=== PATIENT | female | born 1980 | race Caucasian/White ===

== ENCOUNTER → 2020-01-14 15:50 | Outpatient (CLI) | payer OTHER, SELFPAY ==
--- NOTE | ~2020-01-14 | US_ITS ---
EXAMINATION: US transvaginal DATE: 01/14/2020 16:20 INDICATION: Abnormal uterine bleeding TECHNIQUE: Multiple endovaginal sonographic images of the pelvis were obtained. COMPARISON: None. FINDINGS: The uterus measures 9 x 5 x 5.3 cm. Nabothian cysts are noted in the cervix. The endometria l complex measures 10 mm. The right ovary measures 2.5 x 2.2 x 1.8 cm. The left ovary measures 3.1 x 2 x 2.1 cm. There is normal vascular flow in the ovaries. There is a small amount of free fluid in t he pelvis. IMPRESSION: 1. No sonographic correlate for the patient's symptoms. Reviewed, dictated and finalized at location A. PROCESS INSPECTOR
== END ==
PROVIDERS: Visit Provider Nurse Practitioner
DX: N93.9 Abnormal uterine and vaginal bleeding, unspecified (principal)
CPT/HCPCS: 76830

== ENCOUNTER → 2020-09-29 16:06 | Outpatient (CLI) | payer OTHER, SELFPAY ==
--- NOTE | ~2020-09-29 | MM_ITS ---
EXAMINATION: MM screening sandra BI w lisa HISTORY: Screening mammogram TECHNIQUE: Craniocaudal and mediolateral oblique 3-D tomosynthesis images were obtained and synthetic 2-D images were generated. CAD analysis was submitted and interpreted. COMPARISON: No prior mammogram is available for comparison at this institution. BREAST PARENCHYMAL COMPOSITION: The breasts are heterogeneously dense, which may obscure small masses . FINDINGS: RIGHT BREAST: There is no evidence of suspicious mass, calcification, or architectural distortion to suggest malignancy. LEFT BREAST: There are grouped indeterminate calcifications in the posterior third of the upper outer quadrant of the left breast. IMPRESSION: 1. Indeterminate left breast calcifications which may represent the patient's baseline however no com parison is currently available. 2. Comparison with prior mammograms is necessary. BI-RADS Category 0: Incomplete: Needs comparison with prior mammograms. Reviewed, dictated and finalized at location A. ER MAKER IMPRESSION: 1. Indeterminate left breast calcifications which may represent the patient's b aseline however no comparison is currently available. 2. Comparison with prior mammograms is necessary. BI-RADS Category 0: Incomplete: Needs comparison with prior mammograms.
== END ==
PROVIDERS: Visit Provider Nurse Practitioner
DX: Z12.31 Encounter for screening mammogram for malignant neoplasm of breast (principal); R91.8 Other nonspecific abnormal finding of lung field
CPT/HCPCS: 77063; 77067

== ENCOUNTER → 2020-10-31 08:43 | Outpatient (CLI) | payer OTHER, SELFPAY ==
--- NOTE | ~2020-10-31 | MM_ITS ---
EXAMINATION: MM diagnostic mammo unilat LT HISTORY: Indeterminate right breast calcifications on baseline screening mammogram TECHNIQUE: Additional images of the left breast were performed. CAD analysis was submitted and interp reted. COMPARISON: 09/29/2020 BREAST PARENCHYMAL COMPOSITION: The breasts are heterogeneously dense, which may obscure small masses . FINDINGS: There are grouped, punctate calcifications in the posterior third of the upper outer quadra nt of the breast which appear to be round in morphology. No associated mass is identified. IMPRESSION: 1. Probably benign left breast calcifications. 2. Recommend 6 month follow-up left diagnostic mammogram. BI-RADS category 3, probably benign findings. Reviewed, dictated and finalized at location A. ODONTAL ASSISTANT
== END ==
PROVIDERS: Visit Provider Obstetrics & Gynecology Gynecology
DX: R92.1 Mammographic calcification found on diagnostic imaging of breast (principal)
CPT/HCPCS: 77065

== ENCOUNTER → 2021-05-04 03:38 | Outpatient (CLI) | payer OTHER, SELFPAY ==
[2021-05-04 18:47] LABS: SARS-CoV-2 RNA PCR Negative
== END ==
PROVIDERS: PCP Family Medicine; Visit Provider Obstetrics & Gynecology Gynecology
DX: Z01.812 Encounter for preprocedural laboratory examination (principal); Z20.822 Contact with and (suspected) exposure to COVID-19
CPT/HCPCS: C9803; U0003; U0005

== ENCOUNTER 2021-05-04 08:18 | Outpatient (CLI) | payer OTHER, SELFPAY | END 2021-05-04 08:19 | disposition home or self-care (01) | LOC: ANHSURGERY 08:21 | PROVIDERS: PCP Family Medicine; Visit Provider Obstetrics & Gynecology Gynecology | DX: Z01.812 Encounter for preprocedural laboratory examination (principal); N92.0 Excessive and frequent menstruation with regular cycle | CPT/HCPCS: 36415; 86850; 86900; 86901 ==

== ENCOUNTER 2021-05-07 00:45 | Day surgery (SDC) | payer OTHER, SELFPAY ==
[2021-04-27 10:51] VITALS: BMI 35.6
--- NOTE | 2021-05-04 16:03 | P.PNAN_ITS ---
Anes - Initial Pre Proc Eval Procedure: Operation Date: 05/07/21 07:30 Proposed Procedures p Laparoscopic Assisted Vaginal Hysterectomy - Laura Solis MD Date/Time: 05/04/21 16:03 Surgeon: Laura Solis MD Pre Op Diagnosis: menorrhaghia Patient Data Age: 40 Gender: F Height: 1.57 m Weight: 88.45 kg Allergies Allergy/AdvReac Type Severity Reaction Status Date / Time cefaclor Allergy Severe Hives Verified 05/07/21 06:44 Home Medications Medication Instructions Recorded Confirmed Type buspirone 7.5 mg PO HS PRN 04/27/21 04/27/21 History sertraline 50 mg PO HS 04/27/21 04/27/21 History Patient hx anesthesia problems: none Family hx anesthesia problems: none [facility] Past Medical History Medical History (Updated 05/04/21 @ 16:04 by Corey Lopez MD) Anxiety Obesity Social History Social History Smoking status: Never smoker Alcohol intake: current Alcohol use details: 1/MONTH Substance use: never Substance use type: does not use Living arrangements: with family Spiritual care concerns: No Anes - Eval Final PreProcedure Day of Procedure 05/04/21 16:03 Patient weight: overweight Heart: regular rate and rhythm Lungs: clear to auscultation and normal air movement Airway: Mallampati scale class II Neurological: alert and oriented Last oral intake: >/= 8 hours ASA classification: II Emergent: no Anesthetic plan: proceed Anesthesia type and monitoring: general ETT Informed Consent: The patient's anesthetic plan and its attendant risks and benefits were discussed with the patient/family/POA. Questions were solicited and answers provided to the satisfaction of the patient/family/POA.
[2021-05-07] VITALS (9 sets, daily range): BP systolic 105–142; BP diastolic 49–89; PULSE 82–120; RESP 12–20; TEMP 36.1–36.9; O2SAT 92–100; BMI 35.8
--- NOTE | 2021-05-07 06:55 | WPDHPUPDATE1 ---
History and Physical Update Update Date/Time: 05/07/21 06:55 History and Physical has been reviewed, including an updated exam of the patient. There are NO changes in the patient's condition. Risks, benefits, and alternatives have been discussed and questions answered. Patient agrees to proceed with procedure.
--- NOTE | 2021-05-07 06:55 | PM.HPGS ---
History of Present Illness History of Present Illness Consent: Risks, benefits, and alternatives have been discussed and questions answered. Patient agrees to proceed with procedure. Chief complaint: menorrhaghia Narrative: Albina Cheek is a 40 year old female 3 para 3 status post ablation in 2013 with recurrent menorrhagia. The patient has been changing pads every 2 hours and bleeding through her clothes. She passes clots ranging from half-dollar to tennis ball size. Medical options were reviewed for treatment. She has elected to proceed with definitive therapy with hysterectomy. Plan is to proceed with laparoscopy to evaluate scar tissue from prior followed by a total vaginal hysterectomy possible bilateral salpingectomy. Risks of infection, bleeding, injury to internal organs (bowel, bladder, ovaries, ureters, etc.), deep vein thrombosis, and general anesthesia were reviewed. Possible need for open hysterectomy was also discussed. Patient voices understanding and agrees to proceed. Review of Systems Review of Systems: Narrative: not repeated day of surgery; patient states no changes in status PMFSH Past Medical History Medical History (Updated 05/07/21 @ 07:00 by Laura Solis MD) Anxiety (normal spontaneous vaginal delivery) x2 Obesity Surgical History Surgical History (Updated 05/07/21 @ 07:00 by Laura Solis MD) History of x1 S/P endometrial ablation Social History Social History Smoking status: Never smoker Alcohol intake: current Alcohol use details: 1/MONTH Substance use: never Substance use type: does not use Living arrangements: with family Spiritual care concerns: No Meds Home Medications and Allergies Home Medications Medication Instructions Recorded Confirmed Type buspirone 7.5 mg PO HS PRN 04/27/21 05/07/21 History sertraline 50 mg PO HS 04/27/21 05/07/21 History Allergies Allergy/AdvReac Type Severity Reaction Status Date / Time cefaclor Allergy Severe Hives Verified 05/07/21 06:44 Exam Const: General: healthy appearing and alert Orientation/consciousness: patient oriented x3 Resp: Effort & Inspection: normal respiratory effort Auscultation: clear to auscultation bilaterally Cardio: Rate: regular rate Rhythm: regular rhythm GI: GI Palp: Yes Soft to palpation, No Tenderness to palpation present (GI) and No Palpable mass present : External Female Exam: normal external appearance Speculum Exam - Vagina: normal appearance of the vagina and normal vaginal discharge Speculum Exam - Cervix: normal appearance of the cervix Bimanual exam- vagina & uterus: uterine size normal and consistency normal Bimanual Exam- Adnexa, other: normal adnexae and No adnexal tenderness Neuro: General: patient oriented x3 Assessment and Plan Assessment and plan (1) Menorrhagia: Code(s): N92.0 - Excessive and frequent menstruation with regular cycle Status: Acute Assessment and Plan: Plan is to proceed with laparoscopy, total vaginal hysterectomy and possible bilateral salpingectomy.
[2021-05-07] MEDS: KETOROLAC 15 MG/ML VIAL (*BKC) IV PUSH (07:30)
[2021-05-07] MEDS: ACETAMINOPHEN 500 MG TABLET 1000 MG PO (07:30)
[2021-05-07] MEDS: LACTATED RINGERS 1,000 ML 30 ML IV CONT ×2 (07:30→09:42)
[2021-05-07] MEDS: CLINDAMYCIN 900 MG/D5W 50 ML 900 MG/50 ML PIGGYBACK 50 MG IVPB (07:43)
[2021-05-07] MEDS: GENTAMICIN SULFATE INJ 325 MG in DEXTROSE 5% 100 ML 100 MG IVPB (07:43)
[2021-05-07] MEDS: LIDO 1%/EPINEPHRINE 1:100,000 50 ML VIAL INFILTRATE (08:59)
--- NOTE | 2021-05-07 09:09 | W.PM.PROC2 ---
Procedure Note - Detailed Date of Procedure 05/07/21 Pre-op Diagnosis menorrhaghia Post-op Diagnosis same Procedure Performed Laparoscopic adhesiolysis; total vaginal hysterectomy with bilateral salpingectomy Surgeon Laura Solis MD Anesthesia general Findings There is omentum adherent to the entire posterior fundus. Tubes and ovaries appear grossly normal and uterus appears grossly normal. Description of Procedure The patient was taken to the operating room and placed under anesthesia in the dorsal lithotomy position. She was prepped and draped in the usual sterile fashion. [place] speculum was placed in the vagina and the cervix was grasped on the anterior lip with a tenaculum. The acorn manipulator was placed. The attention is then turned to the abdomen where a vertical skin incision was made in the base of the umbilicus. The abdomen is tented and the Veress needle placed opening patient pressure was 5mmHg. Pneumoperitoneum was obtained to a patient pressure of 15mmHg. The Veress needle was removed and the 5mm Optiview to trocar was placed while tenting the abdomen. Intra-abdominal placement was confirmed with the laparoscope. The patient is placed in Trendelenburg a 5mm skin incision was made 2cm above the symphysis pubis in the midline and the trocars placed under direct visualization. Using a blunt probe the pelvis is explored with the stated findings. The 3rd 5mm trocars placed in the left lower quadrant under direct visualization. The omentum is grasped with an atraumatic grasper and the [place] scissors are used to cauterize and cut the scar tissue until the omentum was fully released. Attention is then returned to the pelvis the acorn manipulator is removed. The short weighted speculum was placed posteriorly and the Norman retractor placed anteriorly the cervix is injected in a circumferential manner with 1% lidocaine with epinephrine. A scalpel was used to circumferentially incise the cervix around the os. The vaginal mucosa is dissected off anteriorly using sharp and blunt dissection. The peritoneum was entered and the Norman retractor was placed intraperitoneally. the posterior vaginal mucosa is dissected off using sharp and blunt dissection and the peritoneum was entered using sharp Borja scissors. The long curved weighted speculum was placed through the peritoneal incision posteriorly. The minimally curved Z clamps are used to clamp the uterosacral ligaments which were then transected and suture-ligated with 0 Vicryl and tagged for future use. The cardinal ligaments were serially clamped transected and suture ligated with 0 Vicryl. The the uterine vessels are clamped transected and suture ligated with 0 Vicryl. The posterior fundus is grasped with piercing towel clamps and specimen delivered through the cul-de-sac. The specimen is very wide at the fundus and therefore the fundus is transected to allow for manipulation to reach the last pedicle. The utero-ovarian ligament is clamped transected and suture ligated with 0 Vicryl the tube is included on the pedicle of the right. The left previously tagged utero-ovarian ligament is grasped and the left tube identified grasped with a [place] and crossclamped with a the clamp. The tube was excised and the pedicle tied off using 0 Vicryl. All pedicles are inspected and noted to be hemostatic. The peritoneum is grasped anteriorly with a Peon the short weighted speculum was replaced posteriorly and the peritoneum was grasped in the posterior with a Peon. The peritoneum was closed incorporating the previously tagged uterosacral ligaments in a pursestring fashion using 0 Ethibond. The vaginal cuff was closed using 0 Vicryl in a running locked fashion. The attention was returned to the abdomen and the pneumoperitoneum retained no active bleeding was noted at any pedicle. All instruments are removed and the pneumoperitoneum was reduced skin is closed using 4 0 nylon in an interrupted fa
--- NOTE | 2021-05-07 09:18 | PM.DS ---
DS: Admitting Diagnosis Admitting Diagnosis Admitting Diagnosis: Menorrhagia DS: Discharge Diagnosis Discharge Diagnosis (1) Menorrhagia: Code(s): N92.0 - Excessive and frequent menstruation with regular cycle Status: Acute DS: Summary Hospital Course Hospital Course: Patient is voiding, ambulating, and tolerating a regular diet prior to discharge. Status at Discharge Functional status at discharge: independent ambulation Overall status at discharge: patient is progressing back to baseline Time Spent with Patient Time attestation: Total time spent providing and/or coordinating discharge services: Time spent: Less than 30 minutes DS: Data Data Completed and Pending Pending studies at discharge: Pending at discharge 05/07/21 09:09 Surgical [PTH] Routine Discharge Plan Discharge Patient Disposition: Home, Self-Care Discharge Instructions: pelvic rest Stand Alone Forms: General Discharge Instructions Discharge Medications: New hydrocodone-acetaminophen 5-325 mg Tablet 1 tablet PO Q3H PRN (Reason: Pain Rated 5 Or Less) Qty: 20 RF: 0 hydrocodone-acetaminophen 5-325 mg tablet 1 tablet PO Q4H PRN (Reason: pain) Qty: 20 RF: 0 Continued buspirone 7.5 mg Tablet 7.5 mg PO HS PRN (Reason: Anxiety) RF: 0 sertraline 50 mg Tablet 50 mg PO HS RF: 0
[2021-05-07] MEDS: fentaNYL CITRATE INJ (*CRX) 100 MCG/2 ML VIAL 25 MCG IV PUSH ×4 (10:16→10:31)
--- NOTE | 2021-05-07 10:47 | PC.NURSE ---
This patient, Albina Cheek, was received from PACU per bed to room 289. Patient/family oriented to unit policies and routines
[2021-05-07] MEDS: DEXTROSE 5%/LACTATED RINGERS 1,000 ML 125 ML IV CONT ×2 (11:33→19:07)
[2021-05-07] MEDS: KETOROLAC 30 MG/ML VIAL (*BKC) IV PUSH (11:33)
[2021-05-07] MEDS: FENTANYL 600MCG/NS30MLPCA(*CRX 600 MCG/30 ML PCA.VIAL IV CONT (12:22)
[2021-05-07] MEDS: IBUPROFEN 600 MG TABLET PO ×2 (17:33→23:12)
[2021-05-07] MEDS: HYDROcodone/acetaminophen (*CRX) 10-325 MG TABLET 1 TAB PO ×3 (17:33→23:12)
[2021-05-07] MEDS: SERTRALINE HCL 50 MG TABLET PO (20:29)
[2021-05-07] MEDS: SIMETHICONE 80 MG TAB.CHEW PO ×2 (20:29→23:12)
[2021-05-07] MEDS: busPIRone HCL 2.5 MG, busPIRone HCL 5 MG 7.5 MG PO (20:29)
[2021-05-08] MEDS: HYDROcodone/acetaminophen (*CRX) 5-325 MG TABLET 1 TAB PO (05:30)
[2021-05-08] MEDS: IBUPROFEN 600 MG TABLET PO ×2 (05:30→11:44)
[2021-05-08] MEDS: SIMETHICONE 80 MG TAB.CHEW PO ×2 (05:30→11:32)
[2021-05-08 06:21] LABS: Basophils Percent Auto 0.3 % (0.2-1.2); Eosinophils Percent Auto 0.3 % (0-4.4); Hematocrit 33.8 % (37.0-47.0); Hemoglobin 11.6 g/dL (12.0-15.0); Immature Granulocyte Absolute 0.04 K/mm3 (0.00-0.031); Immature Granulocyte Percent A 0.3 % (0-0.5); Lymphocytes Percent Auto 16.6 % (18.3-44.2); Mean Corpuscular HGB Conc 34.3 g/dl (32-36); Mean Corpuscular Volume 90.4 fl (80-100); Mean Platelet Volume 8.4 fl (7.4-10.4); Monocytes Absolute Auto 0.9 K/mm3 (0.1-0.6); Neutrophils Absolute Auto 8.5 K/mm3 (1.3-6.7); Neutrophils Percent Auto 74.5 % (45.5-73.1); Platelet Count Result 307 k/mm3 (150-375); Red Blood Count 3.74 M/mm3 (4.2-5.4); Red Cell Distribution Width 13.2 % (11.5-14.5); White Blood Count 11.4 K/mm3 (4.5-10.0)
[2021-05-08 07:40] VITALS: BP 114/69; PULSE 87; RESP 16; TEMP 36.6; O2SAT 94
--- NOTE | 2021-05-08 07:41 | PM.GYNPNOP ---
INFORMATION SYSTEMS MANAGER - A/P Postoperative Procedures: Procedures Operation Date: 05/07/21 07:30 Actual Procedure Side Surgeon p Laparoscopic Assisted Total Vaginal Hysterectomy, Bilateral Salpingectomy Bilateral Laura Solis MD Postoperative day: 1 Postoperative status: doing well Postoperative plan: routine post-op care and discharge (this afternoon) Time Spent With Patient Time: Total time spent is greater than 50% in coordination of care (as documented) at patient's floor/unit and/or counseling patient: Time with patient: less than 15 minutes INFORMATION SYSTEMS MANAGER- PN:Subj Post-Op Subjective Date/time seen: 05/08/21 07:41 Subjective: pain is well controlled and other (catheter not draining well through night so increased pain; ok now) Exam Narrative: Exam Narrative: bandages intact, dry INFORMATION SYSTEMS MANAGER - PN: Obj Data Vital Signs Vital Signs: Vital Signs - 24 hr 05/07/21 09:42 05/07/21 09:55 05/07/21 10:10 Temperature 97.4 F L Pulse Rate 120 H 102 H 104 H Respiratory Rate 20 12 12 Blood Pressure 111/55 L 107/49 L 108/59 L Pulse Oximetry 94 98 100 05/07/21 10:25 05/07/21 11:00 05/07/21 16:40 Temperature 98.4 F 98.2 F Pulse Rate 109 H 82 86 Respiratory Rate 16 16 18 Blood Pressure 105/56 L 116/65 107/66 Pulse Oximetry 95 92 97 05/07/21 18:40 05/07/21 23:06 Temperature 98.1 F 98.1 F Pulse Rate 90 83 Respiratory Rate 18 16 Blood Pressure 120/76 112/67 Pulse Oximetry 100 Intake/Output Intake/Output: Intake & Output 05/05/21 05/06/21 05/07/21 05/08/21 23:59 23:59 23:59 23:59 Intake Total 2073.125 300 Output Total 2270 700 Balance -196.875 -400 Meds/Results Medications: Active Medications Generic Name Dose Route Start Last Admin Trade Name Freq PRN Reason Stop Dose Admin Hydrocodone Bitart/Acetaminophen 1 tab 05/07/21 10:40 05/08/21 05:30 Hydrocodone/Acetaminophen (*Crx) 5-325 Mg Tablet PO 1 tab Q3H PRN Administration Pain Rated 5 or Less Hydrocodone Bitart/Acetaminophen 1 tab 05/07/21 10:40 05/07/21 23:12 Hydrocodone/Acetaminophen (*Crx) 10-325 Mg Tablet PO 1 tab Q3H PRN Administration Pain Rated 6 or Greater Buspirone HCl 2.5 mg/ 7.5 mg 05/07/21 11:09 05/07/21 20:29 Buspirone HCl 5 mg PO 7.5 mg HS PRN Administration Anxiety Fentanyl Citrate 600 mcg in 30 mls @ 0.5 mls/hr 05/07/21 10:40 05/07/21 17:47 Fentanyl 600 Mcg/Ns 30 Ml Inspector Of Dredging IV CONT Infused .Q24H PRN Titration IT GENERALIST Management Protocol 10 MCG/HR Ibuprofen 600 mg 05/07/21 10:40 05/08/21 05:30 Ibuprofen 600 Mg Tablet PO 600 mg Q6H PRN Administration Cramping Ketorolac Tromethamine 30 mg 05/07/21 10:40 05/07/21 11:33 Ketorolac 30 Mg/Ml Vial (*Bkc) IV PUSH 05/12/21 10:41 30 mg Q6H PRN Administration Pain Rated 4-6 Naloxone HCl 0.1 mg 05/07/21 10:40 Naloxone Hcl 0.4 Mg/Ml Vial IV PUSH Q2M PRN Respiratory rate less than 10 Ondansetron HCl 4 mg 05/07/21 10:40 Ondansetron Inj 4 Mg/2 Ml Vial IV PUSH Q6H PRN Nausea And Vomiting Sertraline HCl 50 mg 05/07/21 21:00 05/07/21 20:29 Sertraline Hcl 50 Mg Tablet PO 50 mg HS SACHA Administration Simethicone 80 mg 05/07/21 10:40 05/08/21 05:30 Simethicone 80 Mg Tab.Chew PO 80 mg Q2H PRN Administration Gas Labs CBC & Chem 7: 05/08/21 06:16 Labs: Laboratory Results - last 24 hr 05/08/21 06:16 WBC 11.4 H RBC 3.74 L Hgb 11.6 L Hct 33.8 L MCV 90.4 MCH 31.0 MCHC 34.3 RDW 13.2 Plt Count 307 MPV 8.4 Immature Gran % (Auto) 0.3 Neut % (Auto) 74.5 H Lymph % (Auto) 16.6 L [place] % (Auto) 8.0 Eos % (Auto) 0.3 Baso % (Auto) 0.3 Lymph # (Auto) 1.90 [place] # (Auto) 0.9 H Eos # (Auto) 0.0 Baso # (Auto) 0.0 Abs Immat Gran (auto) 0.04 H Absolute Neuts (auto) 8.5 H Absolute Nucleated RBC 0.0 Nucleated RBC % 0.0
--- NOTE | 2021-05-08 08:56 | P.PNAN_ITS ---
Anes - Prog Note Post-Op Date/Time: 05/08/21 08:56 Cardiovascular status: normal Respiratory status: normal Airway patency: baseline Mental status: baseline Post-Op hydration status: normal Vital Signs: Last Vital Signs Temp 36.6 C 05/08/21 07:40 Pulse 87 05/08/21 07:40 Resp 16 05/08/21 07:40 BP 114/69 05/08/21 07:40 Pulse Ox 94 05/08/21 07:40 Pain Score (VAS): 3 I/O: Intake & Output 05/07/21 05/08/21 05/08/21 23:59 07:59 15:59 Intake Total 1615 300 Output Total 2150 700 Balance -535 -400 Laboratory Tests 05/08/21 06:16 05/08/21 06:16 WBC 11.4 H RBC 3.74 L Hgb 11.6 L Hct 33.8 L MCV 90.4 MCH 31.0 MCHC 34.3 RDW 13.2 Plt Count 307 MPV 8.4 Immature Gran % (Auto) 0.3 Neut % (Auto) 74.5 H Lymph % (Auto) 16.6 L [place] % (Auto) 8.0 Eos % (Auto) 0.3 Baso % (Auto) 0.3 Lymph # (Auto) 1.90 [place] # (Auto) 0.9 H Eos # (Auto) 0.0 Baso # (Auto) 0.0 Abs Immat Gran (auto) 0.04 H Absolute Neuts (auto) 8.5 H Absolute Nucleated RBC 0.0 Nucleated RBC % 0.0 Post-procedural complaints: none Patient Feedback: Patient satisfied with anesthetic care.
[2021-05-08 09:30] VITALS: PULSE 87; RESP 16; O2SAT 94
[2021-05-08] MEDS: HYDROcodone/acetaminophen (*CRX) 10-325 MG TABLET 1 TAB PO ×2 (11:45→16:40)
[2021-05-08] MEDS: ONDANSETRON INJ 4 MG/2 ML VIAL IV PUSH (12:00)
[2021-05-08 17:15] VITALS: PULSE 87; RESP 16; O2SAT 94
== END 2021-05-08 17:25 | disposition home or self-care (01) ==
LOC: ANHSURGERY 09:19 → ANHOB2 10:42
PROVIDERS: PCP Family Medicine; Visit Provider Obstetrics & Gynecology Gynecology
PROC: 0UT9FZZ Resection of Uterus, Via Natural or Artificial Opening With Percutaneous Endoscopic Assistance (ICD-10-PCS; CPT 58552; principal; 2021-05-07 07:30)
DX: N92.0 Excessive and frequent menstruation with regular cycle (principal); N80.0 Endometriosis of uterus; N73.6 Female pelvic peritoneal adhesions (postinfective); F41.9 Anxiety disorder, unspecified; E66.9 Obesity, unspecified; Z68.35 Body mass index [BMI] 35.0-35.9, adult
CPT/HCPCS: 58552; 36415; 85025; 86850; 86900; 86901; 88307; 99199; A9270; C9803; J0330; J1100; J1170; J1580; J1885; J2250; J2405; J2704; J2710; J3010; J7030; J7120; J7121; U0003; U0005

== ENCOUNTER 2021-05-21 13:35 | Inpatient (IN) | payer OTHER, SELFPAY ==
[2021-05-21] VITALS (7 sets, daily range): BP systolic 100–134; BP diastolic 59–86; PULSE 109–125; RESP 18–24; TEMP 36.3–37.7; O2SAT 100; BMI 35.6
--- NOTE | ~2021-05-21 | CT_ITS ---
EXAMINATION: CT guide absc cath placement DATE: 05/22/2021 14:48 INDICATION: Pelvic abscess. TECHNIQUE: The procedure including the risks, benefits, and alternatives was discussed with the patie nt. Risks discussed included bleeding and infection. The patient understood the risks and benefits an d agreed to proceed. The patient was confirmed to be receiving appropriate antibiotic coverage. The skin overlying the abdomen was prepped and draped in usual sterile fashion. Anesthetic was administe red with 1% lidocaine subcutaneously. Moderate sedation was achieved with 1 mg Versed IV and 50 mcg f entanyl IV. An 18 gauge trochar needle was inserted into the pelvic abscess with CT guidance. The nee dle was exchanged over a wire for 6 Chadian and 8 Chadian dilators and then for an 8.5 Chadian pigtail c atheter. The catheter was stitched to the skin, and a sterile dressing was applied. The dose-length p roduct was 126.69 mGy-cm. There were no immediate complications. FINDINGS: CT images demonstrate the catheter within the fluid collection. 4 mL fluid was aspirated fo r testing. IMPRESSION: 1. Successful CT-guided pelvic abscess drainage. 2. 4 mL dark red, opaque, foul-smelling fluid was sent for aerobic and anaerobic cultures. Reviewed, dictated and finalized at location A. IMPRESSION: 1. Successful CT-guided pelvic abscess drainage. 2. 4 mL dark red, opaque, foul-smelling fluid was sent for aerobic and anaerobi c cultures.
--- NOTE | ~2021-05-21 | CT_ITS ---
EXAMINATION: CT abdomen pelvis w con EXAM DATE: 05/21/2021 16:38 INDICATION: Low abdominal pain, post op for hysterectomy, r/o abscess. TECHNIQUE: Spiral CT of the abdomen and pelvis was performed following intravenous injection of 100 m L Omnipaque 350. Axial, coronal and sagittal images of the abdomen and pelvis were reviewed. The do se-length product (DLP) for this examination was 683.47 mGy-cm. The exposure was tailored according to patient size (auto mA exposure control), and iterative reconstruction (ASIR) was used as additiona l dose reduction technique. There is no prior study for comparison. FINDINGS: There is complex multiloculated fluid collection in the hysterectomy bed measuring about 6 cm in diameter, could be an abscess given the well-defined enhancing wall and some adjacent inflammat ion. Can't exclude noninfected hematoma/seroma. There is moderate diffuse bladder wall thickening, co uld be reactive, or acute or chronic cystitis. No hydronephrosis. Mild inflammation the lower retrope ritoneum, some small reactive lymph nodes. Splenule. The liver, spleen, adrenal glands and pancreas are unremarkable. Gallbladder is unremarkab le. No biliary obstruction. There are no findings to suggest appendicitis. The stomach and small bj wel are unremarkable. There is expected amount of colonic stool. No free intraperitoneal gas. Th e heart is normal in size. There are no pericardial or pleural effusions. The lung bases are unrema rkable. There are no osteoblastic or osteolytic lesions identified. IMPRESSION: 1. 6 cm multiloculated pelvic fluid collection with enhancing wall suspicious for abscess. Location should be amenable to percutaneous drainage if indicated clinically. 2. Reactive bladder wall edema, acute or chronic cystitis. Reviewed, dictated and finalized at location A.
--- NOTE | 2021-05-21 15:27 | ECG_ITS ---
Measurements Intervals [place] Rate: 114 P: 25 NE: 156 QRS: 23 QRSD: 86 T: 12 QT: 348 QTc: 480 Interpretive Statements SINUS TACHYCARDIA DELAYED PRECORDIAL R/S TRANSITION NONSPECIFIC T-WAVE ABNORMALITY- DIFFUSE LEADS ABNORMAL ECG Electronically Signed On 05-22-2021 9:25:58 CDT by Dario Warren D.O.
[2021-05-21 16:07] LABS: Add Urine Microscopic? YES; Appearance Urine Clear (Clear); Bacteria Urine Trace /hpf; Bilirubin Urine Negative (Negative); Blood Urine Negative (Negative); Color Urine Yellow (Yellow); Glucose Urine UA Negative (Negative); Ketones Urine Negative (Negative); Leukocyte Esterase Ur Trace LEU/UL (Negative); Mucus Urine Rare /lpf; Nitrate Urine Negative (Negative); Protein Urine 1+ mg/dL (Negative); Squamous Epithelial Cell Urine Many /hpf (Few)
[2021-05-21 16:16] LABS: Basophils Percent Auto 0.2 % (0.2-1.2); Eosinophils Absolute Auto 0.1 K/mm3 (0-0.3); Eosinophils Percent Auto 0.3 % (0-4.4); Hematocrit 34.7 % (37.0-47.0); Hemoglobin 11.8 g/dL (12.0-15.0); Immature Granulocyte Absolute 0.08 K/mm3 (0.00-0.031); Immature Granulocyte Percent A 0.5 % (0-0.5); Lymphocytes Absolute Auto 0.92 K/mm3 (0.9-3.2); Lymphocytes Percent Auto 5.5 % (18.3-44.2); Mean Corpuscular Hemoglobin 29.9 pg (26-34); Mean Corpuscular Volume 88.1 fl (80-100); Mean Platelet Volume 8.6 fl (7.4-10.4); Monocytes Absolute Auto 1.1 K/mm3 (0.1-0.6); Monocytes Percent Auto 6.4 % (2.6-8.5); Neutrophils Absolute Auto 14.7 K/mm3 (1.3-6.7); Neutrophils Percent Auto 87.1 % (45.5-73.1); Platelet Count Result 445 k/mm3 (150-375); Red Blood Count 3.94 M/mm3 (4.2-5.4); Red Cell Distribution Width 12.6 % (11.5-14.5); White Blood Count 16.8 K/mm3 (4.5-10.0)
--- NOTE | 2021-05-21 16:20 | ED.GENADULT ---
HPI - General Adult General Chief complaint: Fever Stated complaint: Post Op Fever Time Seen by Provider: 05/21/21 15:13 Source: patient History of Present Illness HPI narrative: Patient is a 40 y/o female complaining of fever for about 1 week. She state that her temperature was up to 101.7 today. She usually take Ibuprofen, which lowers her fever. She also received antibiotic from her doctor for possible UTI. She also has lower abdominal pain. She had vaginal hysterectomy about 2 weeks ago. Related Data Home Medications Medication Instructions Recorded Confirmed buspirone 7.5 mg PO HS PRN 04/27/21 05/07/21 ciprofloxacin HCl 05/21/21 sertraline mg 05/21/21 Allergies Allergy/AdvReac Type Severity Reaction Status Date / Time cefaclor Allergy Severe Hives Verified 05/21/21 17:55 vancomycin AdvReac Other Verified 05/21/21 19:41 Review of Systems Review of Systems: All systems reviewed & are unremarkable except as noted in HPI and below Constitutional: Constitutional: Denies chills, Reports fever(s), Denies headache(s) and Denies weakness Eyes: Eyes: Denies blurry vision ENT: Denies headache(s) and Denies neck pain Cardiovascular: Cardiovascular: Denies chest pain and Denies dyspnea Respiratory: Respiratory: Denies cough and Denies dyspnea Gastrointestinal: Gastrointestinal: Reports abdominal pain, Denies diarrhea, Denies nausea and Denies vomiting Genitourinary: Genitourinary: Denies hematuria and Denies dysuria Musculoskeletal: Musculoskeletal: Denies back pain and Denies neck pain Neurologic: Denies headache(s) and Denies weakness PMFSH Past Medical History Medical History Anxiety (normal spontaneous vaginal delivery) x2 Obesity Surgical History Surgical History History of x1 S/P endometrial ablation Social History Social History Smoking status: Never smoker Alcohol intake: current Substance use: never Substance use type: does not use Gender identity (if verbalized by the patient): Female Spiritual care concerns: No Exam Const: General: no acute distress and well developed Orientation/consciousness: oriented to person, oriented to place, oriented to time and patient oriented x3 HENMT: Head: normocephalic Ears: external ears normal General nose exam: Normal external nose present Eyes: General: appearance normal, both eyes and all related structures Conjunctivae: conjunctivae normal Neck: Neck: normal visual inspection and full ROM Chest: Chest palpation & inspection: normal inspection of the chest and no tenderness Resp: Effort & Inspection: normal respiratory effort Auscultation: clear to auscultation bilaterally Cardio: Rate: regular rate Rhythm: regular rhythm GI: GI Palp: No abdominal tenderness and Yes Soft to palpation : General: Yes other (pelvic tenderness to palpation) Skin: General skin exam: normal color and turgor normal Other: surgical sites from port clean and intact Neuro: General: oriented to person, oriented to place, oriented to time and patient oriented x3 Cognition (Neuro): normal cognition Extrem: General: normal to inspection, full ROM and no pedal edema Psych: Appearance: grossly normal Mental Status: mental status grossly normal Affect: normal affect Course Reevaluation(s) Reevaluation #1: Discussed with patient about CT findings and plan for admission. Patient is agreeable. Asked patient about Cefaclor allergy. She states that she gets hives. However, she is able to tolerate Amoxicillin and Penicillin with adverse reaction. Date: 05/21/21 Time: 17:30 Consultations Consultation #1: Discussed with Dr. Solis, who agrees to admit. Date: 05/21/21 Time: 17:33 Vital Signs Vital signs: Vital Signs Temperature 37.7 C H 05/21/21 14:12 Pulse Rate 125 H
[2021-05-21 16:31] LABS: Alanine Aminotransferase 34 U/L (4-35); Albumin Level 4.3 g/dL (3.5-5.1); Alkaline Phosphatase 111 U/L (38-126); Anion Gap 8 mmol/L (8-16); Aspartate Amino Transferase 47 U/L (14-36); Bilirubin,Total 1.1 mg/dL (0.2-1.3); Blood Urea Nitrogen 10 mg/dL (7-17); Calcium 9.6 mg/dL (8.4-10.2); Carbon Dioxide 26 mmol/L (22-30); Chloride 101 mmol/L (98-107); Estimated CRCL calculation 84 ml/min; Estimated Glomerular Filt Rate > 60; Glucose 116 mg/dL (65-105); Potassium 4.1 mmol/L (3.4-5.0); Sodium 135 mmol/L (137-145)
[2021-05-21] MEDS: SODIUM CHLORIDE 0.9% IV 1,000 ML 999 ML IV CONT (17:13)
[2021-05-21] MEDS: MORPHINE SULFATE (*CRX) 4 MG/ML INJ IV PUSH (18:19)
[2021-05-21 19:05] LABS: Lactic Acid Reflex 1.1 mmol/L (0.7-2.1)
[2021-05-21] MEDS: diphenhydrAMINE HCl INJ 50 MG/ML VIAL (19:38)
--- NOTE | 2021-05-21 19:41 | PC.NURSE ---
Patient reports feeling very flushed skin. ED Provider Marcy Rico and ED RN in room, Provider ordered 50 mg benadryl IV and to slow vancomycin dose to 100 mls/hr. Patient tolerating well at this time.
--- NOTE | 2021-05-21 20:34 | ADMGEN ---
This patient, Albina Cheek, was admitted to Medical Room 343-01. Patient/family oriented to hospital policies and general routines including ID bracelet, bed and alarms, visiting hours, pain management, procedures, bathroom and other care routines, personal items, smoking policy, room service/diet, and visiting hours. Information on how to activate the Rapid Response Team has been discussed. Patient/Family are encouraged to report perceived risks to care and to ask questions if they do not understand what they are told or what they should do.
[2021-05-21] MEDS: ACETAMINOPHEN 325 MG TABLET 650 MG PO (20:38)
[2021-05-22] VITALS (13 sets, daily range): BP systolic 97–123; BP diastolic 62–76; PULSE 108–118; RESP 15–20; TEMP 36.1–38.1; O2SAT 94–100; BMI 36.1
[2021-05-22] MEDS: HYDROcodone/acetaminophen (*CRX) 5-325 MG TABLET 1 TAB PO ×2 (00:21→05:34)
--- NOTE | 2021-05-22 07:51 | PM.GYNPNOP ---
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 Will proceed with that this am. Will dc home post procedure and 1 additional dose of antibiotics. Will change to augmentin and flagyl to dc home. Patient given a dose of vancomycin but had severe flushing and itching so changed to zosyn. Time Spent With Patient Time: Total time spent is greater than 50% in coordination of care (as documented) at patient's floor/unit and/or counseling patient: Time with patient: less than 15 minutes MAT MAKING MACHINE TENDER- PN:Subj Post-Op Subjective Date/time seen: 05/22/21 07:51 Interval history: Patient 2 weeks s/p ALFA-BS Called office Friday with complaints of low grade temp and pressure on bladder. Given Cipro with instructions to call if symptoms changed or did not improve. Called back Friday with increased pain but still low grade temp. Rec. to go to ER. Patient with increasing pelvic pain (06/26) and temp 101.6 Friday so went to ER. Work up showed 6 cm multiloculated fluid in pelvis. WBC 16 Exam Narrative: Exam Narrative: afebrile vss since admit incisions healed abdomen mild tenderness MAT MAKING MACHINE TENDER - PN: Obj Data Vital Signs Vital Signs: Vital Signs - 24 hr 05/21/21 14:12 05/21/21 16:12 05/21/21 17:17 Temperature 99.8 F H 98.7 F 97.3 F L Pulse Rate 125 H 117 H 116 H Respiratory Rate 18 20 24 H Blood Pressure 127/86 119/85 122/79 Pulse Oximetry 100 100 100 05/21/21 17:56 05/21/21 19:06 05/21/21 20:09 Temperature 98.9 F 98.1 F Pulse Rate 116 H 112 H 116 H Respiratory Rate 20 20 18 Blood Pressure 119/79 134/81 119/79 Pulse Oximetry 100 100 100 05/21/21 21:00 05/22/21 00:00 05/22/21 05:27 Temperature 98.9 F 97.5 F L 97.5 F L Pulse Rate 109 H 108 H 114 H Respiratory Rate 18 18 15 Blood Pressure 100/59 L 123/64 118/62 Pulse Oximetry 100 99 97 Intake/Output Intake/Output: Intake & Output 05/19/21 05/20/21 05/21/21 05/22/21 23:59 23:59 23:59 23:59 Intake Total 1300 250 Output Total 410 Balance 1300 -160 Meds/Results Medications: Active Medications Generic Name Dose Route Start Last Admin Trade Name Ronnyq PRN Reason Stop Dose Admin Acetaminophen 650 mg 05/21/21 17:43 05/21/21 20:38 Acetaminophen 325 Mg Tablet PO 650 mg Q6H PRN Administration Fever Hydrocodone Bitart/Acetaminophen 1 tab 05/21/21 21:28 05/22/21 05:34 Hydrocodone/Acetaminophen (*Crx) 5-325 Mg Tablet PO 1 tab Q4H PRN Administration Pain Rated 4-6 Hydrocodone Bitart/Acetaminophen 2 tab 05/21/21 21:32 Hydrocodone/Acetaminophen (*Crx) 5-325 Mg Tablet PO Q4H PRN Pain Rated 7-10 Piperacillin/Tazobactam/Dextrose 3.375 gm in 50 mls @ 100 mls/hr 05/21/21 20:00 05/22/21 06:06 Zosyn 3.375 Gm/D5w 50ml Pm IVPB Infused Q6HR SACHA Infusion Radiology Results: ITS Impressions Abdomen/Pelvis CT 05/21/21 16:44 IMPRESSION: 1. 6 cm multiloculated pelvic fluid collection with enhancing wall suspicious for abscess. Location should be amenable to percutaneous drainage if indicated clinically. 2. Reactive bladder wall edema, acute or chronic cystitis. Labs CBC & Chem 7: 05/21/21 16:09 05/21/21 16:09 Labs: Laboratory Results - last 24 hr 05/21/21 05/21/21 05/21/21 15:53 16:09 16:09 WBC 16.8 H RBC 3.94 L Hgb 11.8 L Hct 34.7 L MCV 88.1 MCH 29.9 MCHC 34.0 RDW 12.6 Plt Count 445 H MPV 8.6 Immature Gran % (Auto) 0.5 Neut % (Auto) 87.1 H Lymph % (Auto) 5.5 L [place] % (Auto) 6.4 Eos % (Auto) 0.3 Baso % (Auto) 0.2 Lymph # (Auto) 0.92 [place] # (Auto) 1.1 H Eos # (Auto) 0.1 Baso # (Auto) 0.0 Abs Immat Gran (auto) 0.08 H Absolute Neuts (auto) 14.7 H Absolute Nucleated RBC 0.0 Nucleated RBC % 0.0 Sodium 135 L Potassium 4.1 Chloride 101 Carbon Dioxide 26 Anion Gap 8 BUN 10
[2021-05-22] MEDS: HYDROcodone/acetaminophen (*CRX) 5-325 MG TABLET 2 TAB PO ×2 (08:37→19:59)
[2021-05-22] MEDS: ALPRAZolam (*CRX) 0.5 MG TABLET 1 MG PO (12:55)
--- NOTE | 2021-05-22 13:58 | WPDMODSED ---
Moderate Sedation Note-Pt Data Patient Data Allergies Allergy/AdvReac Type Severity Reaction Status Date / Time cefaclor Allergy Severe Hives Verified 05/21/21 17:55 vancomycin AdvReac Other Verified 05/21/21 19:41 Home Medications Medication Instructions Recorded Confirmed Type buspirone 7.5 mg PO TID PRN 04/27/21 05/21/21 History ciprofloxacin HCl 500 mg PO BID 05/21/21 05/21/21 History sertraline 100 mg PO HS 05/21/21 05/21/21 History Current Medications: Active Medications Acetaminophen (Acetaminophen 325 Mg Tablet) 650 mg PO Q6H PRN PRN Reason: Fever Last Admin: 05/21/21 20:38 Dose: 650 mg Documented by: Hydrocodone Bitart/Acetaminophen (Hydrocodone/Acetaminophen (*Crx) 5-325 Mg Tablet) 1 tab PO Q4H PRN PRN Reason: Pain Rated 4-6 Last Admin: 05/22/21 05:34 Dose: 1 tab Documented by: Hydrocodone Bitart/Acetaminophen (Hydrocodone/Acetaminophen (*Crx) 5-325 Mg Tablet) 2 tab PO Q4H PRN PRN Reason: Pain Rated 7-10 Last Admin: 05/22/21 08:37 Dose: 2 tab Documented by: Piperacillin/Tazobactam/Dextrose (Zosyn 3.375 Gm/D5w 50ml Pm) 3.375 gm in 50 mls @ 100 mls/hr IVPB Q6HR SACHA Last Infusion: 05/22/21 12:15 Dose: Infused Documented by: Sedation/Anesthesia: No previous sedation/anesthesia problems (including family history). PMF Past Medical History Medical History Anxiety (normal spontaneous vaginal delivery) x2 Obesity Surgical History Surgical History History of x1 S/P endometrial ablation Family History Family History (Updated 05/21/21 @ 20:41 by Susan Hua RN) Mother Hypertension Social History Social History Smoking status: Never smoker Alcohol intake: never Alcohol use details: 1/MONTH Substance use: never Substance use type: does not use Gender identity (if verbalized by the patient): Female Spiritual care concerns: No Mod Sed Physical Exam Physical Exam Pre Procedural Exam: Normal: Lungs, Heart Rate and Heart Rhythm and Variation: Throat (Mallampati class II) and Abdomen (Tender low abdomen) Hours since solid foods: 12 Hours since liquid intake: 12 Mallampati Classification: class III Internal Medicine - PN: Obj Da Vital Signs Vital Signs: Vital Signs - 24 hr 05/21/21 14:12 05/21/21 16:12 05/21/21 17:17 Temperature 37.7 C H 37.1 C 36.3 C L Pulse Rate 125 H 117 H 116 H Respiratory Rate 18 20 24 H Blood Pressure 127/86 119/85 122/79 Pulse Oximetry 100 100 100 05/21/21 17:56 05/21/21 19:06 05/21/21 20:09 Temperature 37.2 C 36.7 C Pulse Rate 116 H 112 H 116 H Respiratory Rate 20 20 18 Blood Pressure 119/79 134/81 119/79 Pulse Oximetry 100 100 100 05/21/21 21:00 05/22/21 00:00 05/22/21 05:27 Temperature 37.2 C 36.4 C L 36.4 C L Pulse Rate 109 H 108 H 114 H Respiratory Rate 18 18 15 Blood Pressure 100/59 L 123/64 118/62 Pulse Oximetry 100 99 97 05/22/21 13:08 Temperature 36.4 C L Pulse Rate 111 H Respiratory Rate 16 Blood Pressure 118/76 Pulse Oximetry 100 Intake/Output Intake/Output: Intake & Output 05/19/21 05/20/21 05/21/21 05/22/21 23:59 23:59 23:59 23:59 Intake Total 1300 300 Output Total 1110 Balance 1300 -810 Meds/Results Medications: Active Medications Generic Name Dose Route Start Last Admin Trade Name Freq PRN Reason Stop Dose Admin Acetaminophen 650 mg 05/21/21 17:43 05/21/21 20:38 Acetaminophen 325 Mg Tablet PO 650 mg Q6H PRN Administration Fever Hydrocodone Bitart/Acetaminophen 1 tab 05/21/21 21:28 05/22/21 05:34 Hydrocodone/Acetaminophen (*Crx) 5-325 Mg Tablet PO 1 tab Q4H PRN Administration Pain Rated 4-6 Hydrocodone Bitart/Acetaminophen 2 tab 05/21/21 21:32 05/22/21 08:37 Hydrocodone/Acetaminophen (*Crx) 5-325 Mg Tablet PO 2 tab Q4H PRN Administ
--- NOTE | 2021-05-22 14:35 | SUR.OPER ---
Procedure completed in CT. Pt tolerated well. transferred to bed. Drsg applied.
--- NOTE | 2021-05-22 15:12 | SUR.PHASEII ---
Pt returned to room after CT guided drain placement with Dr Benz. drain intact to right lower abd with no drainage on drsg. VSS. Report reviewed with RN - Dolly. at bedside on return to room.
[2021-05-23] VITALS: BP 123/76; PULSE 97; RESP 16; TEMP 36.2; O2SAT 96
[2021-05-23] MEDS: HYDROcodone/acetaminophen (*CRX) 5-325 MG TABLET 2 TAB PO (00:07)
[2021-05-23 04:35] VITALS: BP 120/65; PULSE 98; RESP 18; TEMP 36.2; O2SAT 97
[2021-05-23] MEDS: HYDROcodone/acetaminophen (*CRX) 5-325 MG TABLET 1 TAB PO ×2 (04:39→11:46)
[2021-05-23 08:00] VITALS: BP 118/70; PULSE 96; RESP 16; TEMP 35.7; O2SAT 98
[2021-05-23 10:05] VITALS: TEMP 36.9
[2021-05-23] MEDS: ONDANSETRON INJ 4 MG/2 ML VIAL IV PUSH (10:31)
--- NOTE | 2021-05-24 00:23 | P.PNOB_ITS ---
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 Solis for drain removal. Postoperative Procedures: Procedures Operation Date: 05/22/21 14:00 Actual Procedure Side Surgeon p Post Procedure Recovery-Pelvic Abscess Drain Not Applicable Erich Benz MD Time Spent With Patient Time: Total time spent is greater than 50% in coordination of care (as documented) at patient's floor/unit and/or counseling patient: Time with patient: less than 15 minutes ELECTRONICS PROCESSING SUPERVISOR- PN:Subj Post-Op Subjective Date/time seen: 05/23/21 07:50 Patient reports pain much better. can feel some pain from drain site but very tolerable. Interval history: Patient 2 weeks s/p ALFA-BS Called office Friday with complaints of low grade temp and pressure on bladder. Given Cipro with instructions to call if symptoms changed or did not improve. Called back Friday with increased pain but still low grade temp. Rec. to go to ER. Patient with increasing pelvic pain (8/10) and temp 101.6 Friday so went to ER. Work up showed 6 cm multiloculated fluid in pelvis. WBC 16 Exam Narrative: Exam Narrative: inc c/d/i drain with 50 cc present bloody fluid ELECTRONICS PROCESSING SUPERVISOR - PN: Obj Data Vital Signs Vital Signs: Vital Signs - 24 hr 05/23/21 04:35 05/23/21 08:00 05/23/21 10:05 Temperature 36.2 C L 35.7 C L 36.9 C Pulse Rate 98 96 Respiratory Rate 18 16 Blood Pressure 120/65 118/70 Pulse Oximetry 97 98 Intake/Output Intake/Output: Intake & Output 05/21/21 05/22/21 05/23/21 05/24/21 23:59 23:59 23:59 23:59 Intake Total 1300 550 720 Output Total 1510 30 Balance 1300 -960 690 Meds/Results Radiology Results: ITS Impressions Abdomen/Pelvis CT 05/21/21 16:44 IMPRESSION: 1. 6 cm multiloculated pelvic fluid collection with enhancing wall suspicious for abscess. Location should be amenable to percutaneous drainage if indicated clinically. 2. Reactive bladder wall edema, acute or chronic cystitis. Catheter Placement CT 05/22/21 14:49 IMPRESSION: 1. Successful CT-guided pelvic abscess drainage. 2. 4 mL dark red, opaque, foul-smelling fluid was sent for aerobic and anaerobic cultures. Labs CBC & Chem 7: 05/21/21 16:09 05/21/21 16:09
--- NOTE | 2021-06-26 16:47 | PM.DS ---
DS: Admitting Diagnosis Admitting Diagnosis pelvic abscess DS: Discharge Diagnosis Discharge Diagnosis (1) Abscess of pelvis: Status: Acute DS: Summary Hospital Course Reason for hospitalization: pelvic abscess Hospital Course: iv antibioticas and percutaneous drain placed Status at Discharge Functional status at discharge: independent ambulation Overall status at discharge: patient is progressing back to baseline Time Spent with Patient Time attestation: Total time spent providing and/or coordinating discharge services: Time spent: Less than 30 minutes Discharge Plan Discharge Attending physician on discharge: Laura Solis Consulting providers: Dano Santillan ; Dario Warren ; Erich Benz V. Discharging Clinician: Laura Solis Anticipated Discharge Date/Time: 05/22/21 16:59 Patient Disposition: Home, Self-Care Activity: may shower and pelvic rest Diet: regular Wound Care Instructions: keep dressing dry Patient Instructions: Antibiotic Form, Hemovac Drain Care (DC) Stand Alone Forms: General Discharge Information Follow-up/Referrals: Laura Solis MD [Physician] - Call for Appointment (for 2 days) Discharge Medications: New metronidazole [Flagyl] 500 mg tablet 500 mg PO Q12H Qty: 14 RF: 0 amoxicillin-pot clavulanate [Augmentin] 875-125 mg tablet 1 tablet PO Q12H Qty: 14 RF: 0 Continued buspirone 7.5 mg Tablet 7.5 mg PO TID PRN (Reason: Anxiety) RF: 0 sertraline 100 mg tablet 100 mg PO HS RF: 0 Discontinued ciprofloxacin HCl 500 mg tablet 500 mg PO BID RF: 0 Date of admission: 05/21/21 17:34 Primary Care Provider: Sophie,Cory Spears Admitting Provider: Laura Solis Attending physician on admission: Jose Low Condition: Stable
== END 2021-05-23 12:30 | disposition home or self-care (01) | DRG 759 ==
LOC: ANHED 15:45 → ANH3MED 20:09
PROVIDERS: Radiology Diagnostic Radiology; Admitting Provider Obstetrics & Gynecology Gynecology; Emergency Provider Emergency Medicine; PCP Family Medicine; Visit Provider Obstetrics & Gynecology
PROC: 0W9J30Z Drainage of Pelvic Cavity with Drainage Device, Percutaneous Approach (ICD-10-PCS; principal; 2021-05-22 14:00)
DX: N73.0 Acute parametritis and pelvic cellulitis (principal); E66.9 Obesity, unspecified; F41.9 Anxiety disorder, unspecified; Z68.36 Body mass index [BMI] 36.0-36.9, adult
CPT/HCPCS: 36415; 74177; 75989; 80053; 81001; 83605; 85025; 87040; 87070; 87075; 87076; 87086; 87088; 87205; 93005; 99285; A9270; C1769; J1200; J2270; J2405; J2543; J3370; J7030; J7040; Q9967

== ENCOUNTER → 2021-07-30 14:17 | Outpatient (CLI) | payer OTHER, SELFPAY ==
--- NOTE | ~2021-07-30 | MMUS_ITS ---
EXAMINATION: MM diagnostic sandra LT w lisa, US breast LT limited HISTORY: Follow-up left breast asymmetry TECHNIQUE: Additional 3-D tomosynthesis images of the left breast were performed and synthetic 2-D im ages were generated. CAD analysis was submitted and interpreted. High resolution Limited left breast ultrasound was performed. COMPARISON: Comparison to multiple prior studies sequentially, with oldest reviewed study dated 09/17. BREAST PARENCHYMAL COMPOSITION: The breasts are heterogenously dense, which may obscure small masses. FINDINGS: MAMMOGRAPHIC FINDINGS: There are no suspicious masses, calcifications or architectural distortion in the left breast to sugg est malignancy. There are benign calcifications. ULTRASOUND: Limited left breast ultrasound: Normal heterogeneous echotexture without focal solid or cystic mass. IMPRESSION: 1. No evidence for malignancy in the left breast. 2. Routine yearly screening mammogram and regular clinical breast examination are recommended. BI-RADS Category 1: Negative Reviewed, dictated and finalized at location A. IMPRESSION: 1. No evidence for malignancy in the left breast. 2. Routine yearly screening mammogram and regular clinical breast examination a re recommended. BI-RADS Category 1: Negative
== END ==
PROVIDERS: Visit Provider Obstetrics & Gynecology Gynecology
DX: R92.8 Other abnormal and inconclusive findings on diagnostic imaging of breast (principal)
CPT/HCPCS: 76642; 77061; 77065; G0279

== ENCOUNTER → 2022-12-11 11:25 | Outpatient (CLI) | payer OTHER, SELFPAY ==
--- NOTE | ~2022-12-11 | MM_ITS ---
EXAMINATION: MM screening sandra BI w lisa HISTORY: Screening mammogram TECHNIQUE: Craniocaudal and mediolateral oblique 3-D tomosynthesis images were obtained and synthetic 2-D images were generated. CAD analysis was submitted and interpreted. COMPARISON: 07/30/2021 diagnostic left mammogram and limited left breast ultrasound, reported negative 10/31/2020 diagnostic left mammogram 09/29/2020 bilateral screening mammogram BREAST PARENCHYMAL COMPOSITION: The breasts are heterogeneously dense, which may obscure small masses . FINDINGS: Occasional punctate benign-appearing microcalcifications are noted bilaterally. There is no evidence of suspicious mass, calcification, or architectural distortion to suggest malignancy in eit her breast. There has been no suspicious interval change. IMPRESSION: 1. No mammographic evidence of malignancy. 2. Recommend routine screening mammography in one year. BI-RADS Category 2: Benign finding(s). Reviewed, dictated and finalized at location A. 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
== END ==
PROVIDERS: PCP Family Medicine; Visit Provider Obstetrics & Gynecology Gynecology
DX: Z12.31 Encounter for screening mammogram for malignant neoplasm of breast (principal)
CPT/HCPCS: 77063; 77067

== ENCOUNTER 2022-12-12 08:58 | Emergency (ER) | payer OTHER, SELFPAY ==
--- NOTE | 2022-12-12 09:11 | ED.URI ---
HPI - URI/Sore Throat General Chief Complaint: Upper Respiratory Infection Stated Complaint: sore throat, fever Time Seen by Provider: 12/12/22 09:09 Source: patient and RN notes reviewed History of Present Illness HPI Narrative: A 42-year-old female presents to urgent care with complaints of sore throat, congestion, and headache. Patient states she had 100.5 F fever yesterday. States rest of her symptoms started yesterday as well. Patient states her son tested positive for strep throat yesterday. Patient denies any chest pain, shortness of breath, vomiting, or diarrhea. Patient took ibuprofen yesterday moderate relief. Related Data Allergies Allergy/AdvReac Type Severity Reaction Status Date / Time cefaclor Allergy Severe Hives Verified 12/12/22 09:05 vancomycin AdvReac Other Verified 12/12/22 09:05 Review of Systems Review of Systems: CONSTITUTIONAL: Reports fever. EYES: Denies visual changes, redness, or discharge. ENT: Reports sore throat and congestion. CARDIOVASCULAR: Denies chest pain, palpitations, or edema. RESPIRATORY: Slight cough. GASTROINTESTINAL: Denies abdominal pain, nausea, vomiting, or diarrhea. GENITOURINARY: Denies dysuria or hematuria. SKIN: Denies rash or itching. MUSCULOSKELETAL: Denies back pain, joint pain, or myalgia. NEUROLOGIC: Reports headache. [facility] Past Medical History Medical History Anxiety (normal spontaneous vaginal delivery) x2 Obesity Surgical History Surgical History History of x1 S/P endometrial ablation Family History Family History (Updated 05/21/21 @ 20:41 by Susan Hua RN) Mother Hypertension Social History Social History Smoking status: Never smoker Alcohol intake: never Alcohol use details: 1/MONTH Substance use: never Substance use type: does not use Living arrangements: with family Gender identity (if verbalized by the patient): Female Spiritual care concerns: No Comments At the time of my signature, I reviewed and agree with the nursing past medical, surgical, social, and family history. There is no relevant family history pertinent to the patient complaint. Exam Narrative: GENERAL: This is a well-nourished, well-developed patient, in no apparent distress. HEAD: normocephalic, atraumatic. EYES: PERRL. Sclera clear/white. Vision is grossly intact. EARS: External ears normal, auditory canals clear and without drainage, TMs normal without perforation. Hearing grossly intact. NOSE: External nose normal with no obvious nasal discharge, nares without redness, no rhinorrhea. THROAT: Mucous membranes dry, posterior pharynx erythema. No exudate noted. NECK: Neck supple, non-tender without lymphadenopathy, masses or thyromegaly. CARDIOVASCULAR: Regular rate and rhythm without murmurs, gallops, or rubs. RESPIRATORY: Clear to auscultation. Breath sounds equal bilaterally. No wheezes, rales, or rhonchi. GASTROINTESTINAL: Abdomen soft, non-tender, nondistended. Bowel sounds are active. No hepato-splenomegaly, or palpable masses. No guarding. SKIN: warm, intact with no suspicious lesions or rash, good texture and turgor. NEURO: awake, alert, and oriented to person, place and time. There were no obvious focal neurologic abnormalities. Course Course Level of Care: Express Care Visit Vital Signs Vital signs: Vital Signs Temperature 98.3 F 12/12/22 09:12 Pulse Rate 116 H 12/12/22 09:12 Respiratory Rate 16 12/12/22 09:12 Blood Pressure 129/97 H 12/12/22 09:12 Pulse Oximetry 100 12/12/22 09:12 Temperature 98.3 F 12/12/22 09:12 Pulse Rate 116 H 12/12/22 09:12 Respiratory Rate 16 12/12/22 09:12 Blood Pressure 129/97 H 12/12/22 09:12 Pulse Oximetry 100 12/12/22 09:12 Reviewed MDM - URI/Sore Throat MDM Narrative Medical de
[2022-12-12 09:12] VITALS: BP 129/97; PULSE 116; RESP 16; TEMP 36.8; O2SAT 100
== END 2022-12-12 09:25 | disposition home or self-care (01) ==
PROVIDERS: Emergency Provider Nurse Practitioner Family; PCP Family Medicine
DX: J02.9 Acute pharyngitis, unspecified (principal); E66.9 Obesity, unspecified; Z68.41 Body mass index [BMI] 40.0-44.9, adult
CPT/HCPCS: 87081; 87880; 99213; G0463

== ENCOUNTER 2023-05-30 08:59 | Outpatient (CLI) | payer OTHER, SELFPAY ==
[2023-05-30 19:33] LABS: Basophils Percent Auto 0.5 % (0.2-1.2); Eosinophils Absolute Auto 0.2 K/mm3 (0-0.3); Eosinophils Percent Auto 3.1 % (0-4.4); Hematocrit 39.8 % (37.0-47.0); Immature Granulocyte Absolute 0.02 K/mm3 (0.00-0.031); Immature Granulocyte Percent A 0.3 % (0-0.5); Lymphocytes Absolute Auto 2.23 K/mm3 (0.9-3.2); Lymphocytes Percent Auto 30.1 % (18.3-44.2); Mean Corpuscular HGB Conc 35.2 g/dl (32-36); Mean Corpuscular Hemoglobin 31.6 pg (26-34); Mean Corpuscular Volume 89.8 fl (80-100); Mean Platelet Volume 9.5 fl (7.4-10.4); Monocytes Absolute Auto 0.7 K/mm3 (0.1-0.6); Monocytes Percent Auto 8.9 % (2.6-8.5); Neutrophils Absolute Auto 4.2 K/mm3 (1.3-6.7); Neutrophils Percent Auto 57.1 % (45.5-73.1); Platelet Count Result 341 k/mm3 (150-375); Red Blood Count 4.43 M/mm3 (4.2-5.4); Red Cell Distribution Width 13.2 % (11.5-14.5); White Blood Count 7.4 K/mm3 (4.5-10.0)
[2023-05-30 19:53] LABS: Alanine Aminotransferase 23 U/L (6-35); Albumin Level 4.2 g/dL (3.5-5.1); Alkaline Phosphatase 74 U/L (38-126); Anion Gap 2 mmol/L (8-16); Aspartate Amino Transferase 30 U/L (14-36); Bilirubin,Total 0.5 mg/dL (0.2-1.3); Blood Urea Nitrogen 13 mg/dL (7-17); Carbon Dioxide 30 mmol/L (22-30); Chloride 105 mmol/L (98-107); Cholesterol 223 mg/dL (0-200); Estimated Glomerular Filt Rate > 60; Glucose 104 mg/dL (65-110); HDL Direct 36 mg/dL; Potassium 4.1 mmol/L (3.4-5.0); Sodium 137 mmol/L (137-145); Triglycerides 181 mg/dL (<150)
[2023-05-30 20:06] LABS: LDL Cholesterol Direct 144 mg/dL
[2023-06-03 14:47] LABS: Vitamin D 1,25 (OH)2 Total 36 pg/mL (18-72); Vitamin D2 1,25 (OH)2 <8 pg/mL; Vitamin D3 1,25 (OH)2 36 pg/mL
== END 2023-05-30 09:00 | disposition home or self-care (01) ==
LOC: ANHGOSHLAB 09:01
PROVIDERS: PCP Family Medicine; Visit Provider Nurse Practitioner Family
DX: Z00.00 Encounter for general adult medical examination without abnormal findings (principal); R00.2 Palpitations
CPT/HCPCS: 36415; 80053; 80061; 82652; 84443; 85025

== ENCOUNTER 2023-10-25 16:53 | Emergency (ER) | payer OTHER, SELFPAY ==
[2023-10-25 17:03] VITALS: BP 146/88; PULSE 96; RESP 16; TEMP 36.5; O2SAT 100
--- NOTE | 2023-10-25 17:18 | ED.URI ---
HPI - URI/Sore Throat General Chief Complaint: Upper Respiratory Infection Stated Complaint: Cough Time Seen by Provider: 10/25/23 17:18 Source: patient and RN notes reviewed Mode of arrival: ambulatory Limitations: no limitations History of Present Illness HPI Narrative: Patient presents today complaining of a 9-10 day history of cough. Cough is dry. She has some associated symptoms to include fatigue and headache. Denies fever, congestion, rhinorrhea, shortness of breath, chest pain. She has been taking Mucinex, Delsym, and ibuprofen with mild relief. No history of asthma or COPD. 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 Related Data Allergies Allergy/AdvReac Type Severity Reaction Status Date / Time cefaclor Allergy Severe Hives Verified 10/25/23 16:58 vancomycin AdvReac Other Verified 10/25/23 16:58 Review of Systems Review of Systems: GENERAL: Denies fever, chills, or decreased activity.+ fatigue EYES: Denies any eye discharge or redness. ENT: Denies sore throat, ear pain. + congestion, rhinorrhea. RESP: Denies any wheezing, or difficulty breathing.+ cough CARDIOVASCULAR: Denies any rapid heart rate or cool extremities. ABDOMINAL: Denies any constipation, vomiting, diarrhea, or decreased food intake. : Denies any hematuria, foul smelling urine, or decreased urine frequency. SKIN: Denies any lesions, rashes, bruises. MUSCULOSKELETAL: Denies any pain or swelling. NEURO: Denies any lethargy, irritability, or seizures.+ headache PSYCH: Denies abnormal interaction with family and friends. PMFSH Past Medical History Medical History Anxiety (normal spontaneous vaginal delivery) x2 Obesity Surgical History Surgical History History of x1 History of hysterectomy S/P endometrial ablation Family History Family History Mother Hypertension Depression Social History Social History Smoking status: Never smoker Alcohol intake: current Alcohol use details: socially Substance use: never Substance use type: does not use Lack of Transportation: No Lack of Food: Never True Current Housing: I Have Housing Concerned About Future Housing: No Difficulty Paying Gas/Electric Bills: No Difficulty Paying for Meds: No Currently Unemployed: No Education: Bachelor's Degree Difficulty w/ Childcare or Family Care: No Living arrangements: with family Occupation/Education: occupation Gender identity (if verbalized by the patient): Female Spiritual care concerns: No Agree to blood products: Yes Comments At time of signature, I have reviewed and agree with nursing past medical, surgical, social and family history unless otherwise noted. Please see nursing chart for further information. There is no relevant family history pertinent to the presenting complaint Exam Narrative: GENERAL: Well-appearing, well-nourished, and in no acute distress. HEAD: Normocephalic, atraumatic. EYES: EOMI. No redness or drainage. Conjunctivae normal. ENT: Mucous membranes pink and moist. Nares clear. No rhinorrhea. TMs normal bilaterally. Throat normal. Uvula midline. NECK: Normal AROM. Supple. No lymphadenopathy. CHEST: No respiratory distress. Clear to auscultation. Harsh cough noted HEART: Regular rate and rhythm. No murmur appreciated. Normal peripheral pulses. ABDOMEN: Soft, nontender, nondistended, normal active bowel sounds. MUSCULOSKELETAL: No bony tenderness. EXTREMITIES: Normal range of motion. No edema. SKIN: Warm, dry, no rash. Capillary refill normal. Normal skin turgor. NEURO: No focal deficits. Alert and oriented x3. Gait steady. PSYCH: Normal affect. No signs of depression or anxiety. Course Course Level of Care: [facility] Care Visit Vi
== END 2023-10-25 17:28 | disposition home or self-care (01) ==
PROVIDERS: Emergency Provider Nurse Practitioner; PCP Family Medicine
DX: J40 Bronchitis, not specified as acute or chronic (principal); F41.9 Anxiety disorder, unspecified; E66.9 Obesity, unspecified; Z68.34 Body mass index [BMI] 34.0-34.9, adult
CPT/HCPCS: 99213; G0463

== ENCOUNTER 2024-02-20 09:52 | Outpatient (CLI) | payer OTHER, SELFPAY ==
--- NOTE | 2024-02-20 09:54 | EST_ITS ---
Patient Info Name: Albina Cheek Age: 43 years : 1980 Gender: Female Ht: 62 in Wt: 185 lbs BSA: 1.95 m2 HR: 73 bpm BP: 125 / 86 mmHg Heart Rhythm: Sinus Rhythm Exam Date: 02/20/2024 10:08 AM Exam Location: Echo Lab Patient Status: Outpatient Admit Date: 02/20/2024 Staff Ordering Physician: Dolly Thurman APRN Attending Provider: Dolly Thurman APRN Exercise Technologist: Jacqui Martinez CT Exercise Physician: Dario Warren DO Exam Type: CA stress test treadmill Study Info Indications R00.2 - Palpitations A treadmill exercise stress test was performed. Summary 1. 1. Negative Zach exercise stress test for ischemic ST changes by ECG criteria. 2. 2. Good functional capacity, achieving 9 METs of workload. 3. 3. Appropriate HR response to exercise. 4. 4. Appropriate HR recovery at 1 minute post exercise. 5. 5. No imaging with stress testing. 6. 6. Patient informed of the above results. Protocol: Zach Stress ECG Details Stage: REST Duration (min): 1 min : 9 sec Speed (mph): 0.0 Grade (%): 0 HR (bpm): 72 SBP (mmHg): 125 DBP (mmHg): 86 METS: --- Stage: REST Duration (min): 10 min : 43 sec Speed (mph): 0.0 Grade (%): 0 HR (bpm): 82 SBP (mmHg): 125 DBP (mmHg): 86 METS: --- Stage: STAGE 1 Duration (min): 1 min : 0 sec Speed (mph): 1.7 Grade (%): 10 HR (bpm): 101 SBP (mmHg): 125 DBP (mmHg): 86 METS: --- Stage: STAGE 1 Duration (min): 2 min : 0 sec Speed (mph): 1.7 Grade (%): 10 HR (bpm): 119 SBP (mmHg): 125 DBP (mmHg): 86 METS: --- Stage: STAGE 1 Duration (min): 3 min : 0 sec Speed (mph): 1.7 Grade (%): 10 HR (bpm): 119 SBP (mmHg): 127 DBP (mmHg): 88 METS: --- Stage: STAGE 2 Duration (min): 1 min : 0 sec Speed (mph): 2.5 Grade (%): 12 HR (bpm): 136 SBP (mmHg): 127 DBP (mmHg): 88 METS: --- Stage: STAGE 2 Duration (min): 2 min : 0 sec Speed (mph): 2.5 Grade (%): 12 HR (bpm): 146 SBP (mmHg): 160 DBP (mmHg): 84 METS: --- Stage: STAGE 2 Duration (min): 3 min : 0 sec Speed (mph): 2.5 Grade (%): 12 HR (bpm): 150 SBP (mmHg): 160 DBP (mmHg): 84 METS: --- Stage: STAGE 3 Duration (min): 1 min : 0 sec Speed (mph): 3.4 Grade (%): 14 HR (bpm): 161 SBP (mmHg): 183 DBP (mmHg): 83 METS: --- Stage: STAGE 3 Duration (min): 1 min : 0 sec Speed (mph): 3.4 Grade (%): 14 HR (bpm): 161 SBP (mmHg): 183 DBP (mmHg): 83 METS: --- Stage: RECOVERY Duration (min): 0 min : 59 sec Speed (mph): 0.0 Grade (%): 0 HR (bpm): 137 SBP (mmHg): 183 DBP (mmHg): 83 METS: --- Stage: RECOVERY Duration (min): 1 min : 59 sec Speed (mph): 0.0 Grade (%): 0 HR (bpm): 111 SBP (mmHg): 183 DBP (mmHg): 83 METS: --- Stage: RECOVERY Duration (min): 2 min : 59 sec Speed (mph): 0.0 Grade (%): 0 HR (bpm): 102 SBP (mmHg): 153 DBP (mmHg): 75 METS:
== END 2024-02-20 09:53 | disposition home or self-care (01) ==
PROVIDERS: PCP Family Medicine; Visit Provider Nurse Practitioner Family
DX: R00.2 Palpitations (principal)
CPT/HCPCS: 93017

== ENCOUNTER 2024-09-16 08:03 | Outpatient (CLI) | payer OTHER, SELFPAY ==
[2024-09-16 18:40] LABS: Basophils Percent Auto 0.5 % (0.2-1.2); Eosinophils Absolute Auto 0.3 K/mm3 (0-0.3); Eosinophils Percent Auto 4.2 % (0-4.4); Hematocrit 40.5 % (37.0-47.0); Hemoglobin 13.9 g/dL (12.0-15.0); Immature Granulocyte Absolute 0.03 K/mm3 (0.00-0.031); Immature Granulocyte Percent A 0.4 % (0-0.5); Lymphocytes Absolute Auto 2.07 K/mm3 (0.9-3.2); Lymphocytes Percent Auto 26.6 % (18.3-44.2); Mean Corpuscular HGB Conc 34.3 g/dl (32-36); Mean Corpuscular Hemoglobin 32.1 pg (26-34); Mean Corpuscular Volume 93.5 fl (80-100); Mean Platelet Volume 9.2 fl (7.4-10.4); Monocytes Absolute Auto 0.6 K/mm3 (0.1-0.6); Monocytes Percent Auto 8.1 % (2.6-8.5); Neutrophils Absolute Auto 4.7 K/mm3 (1.3-6.7); Neutrophils Percent Auto 60.2 % (45.5-73.1); Platelet Count Result 334 k/mm3 (150-375); Red Blood Count 4.33 M/mm3 (4.2-5.4); White Blood Count 7.8 K/mm3 (4.5-10.0)
[2024-09-16 18:48] LABS: Alanine Aminotransferase 20 U/L (6-35); Albumin Level 4.1 g/dL (3.5-5.1); Alkaline Phosphatase 77 U/L (38-126); Anion Gap 9 mmol/L (4-12); Aspartate Amino Transferase 41 U/L (14-36); Bilirubin,Total 0.8 mg/dL (0.2-1.3); Blood Urea Nitrogen 12 mg/dL (7-17); Calcium 9.3 mg/dL (8.4-10.2); Carbon Dioxide 29 mmol/L (22-30); Chloride 100 mmol/L (98-107); Cholesterol 231 mg/dL (0-200); Estimated Glomerular Filt Rate > 60; Glucose 101 mg/dL (65-110); HDL Direct 39 mg/dL; Sodium 138 mmol/L (137-145); Triglycerides 159 mg/dL (<150)
[2024-09-16 18:58] LABS: LDL Cholesterol Direct 146 mg/dL
[2024-09-16 19:38] LABS: Vitamin D 25 Hydroxy 15.7 ng/mL
[2024-09-16 22:19] LABS: Hemoglobin A1C 5.1 % (<5.7)
== END 2024-09-16 08:04 | disposition home or self-care (01) ==
LOC: ANHGOSHLAB 08:05
PROVIDERS: PCP Family Medicine; Visit Provider Family Medicine
DX: Z00.00 Encounter for general adult medical examination without abnormal findings (principal); E78.5 Hyperlipidemia, unspecified; R73.9 Hyperglycemia, unspecified; F41.9 Anxiety disorder, unspecified; E55.9 Vitamin D deficiency, unspecified; I10 Essential (primary) hypertension; E53.8 Deficiency of other specified B group vitamins
CPT/HCPCS: 36415; 80053; 80061; 82306; 82607; 83036; 84443; 85025

== ENCOUNTER 2024-10-16 17:52 | Emergency (ER) | payer OTHER, SELFPAY ==
--- NOTE | ~2024-10-16 | XR_ITS ---
EXAMINATION: XR chest 2V Exam Date/Time: 10/16/2024 18:20 [facility] HISTORY: cough, exp to pneumonia Comparison: None. RESULT: Lines, tubes, and devices: None. Lungs and pleura: Clear. Cardiomediastinal silhouette: Normal. Other: No acute osseous or upper abdominal finding. IMPRESSION: No acute cardiopulmonary process. Reviewed, dictated and finalized at location K. [facility]AD
--- NOTE | 2024-10-16 17:55 | ED_ITS ---
HPI - URI/Sore Throat General Chief Complaint: Upper Respiratory Infection Stated Complaint: Cough/Congestion Time Seen by Provider: 10/16/24 18:06 Source: patient Mode of arrival: ambulatory Limitations: no limitations History of Present Illness HPI Narrative: Severe is a 44-year-old female patient presenting to the clinic today with complaints of cough and chest congestion x5 days. She reports she has had expo sure to walking pneumonia. 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 She denies any fever, chills, or body aches. States that cough is worse at night. Cough is nonproductive at this time MD elicited complaint: cough Related Data Allergies Allergy/AdvReac Type Severity Reaction Status Date / Time cefaclor Allergy Mild Hives Verified 10/16/24 18:09 vancomycin AdvReac Intermediate Other Verified 10/16/24 18:09 Review of Systems Review of Systems: Pertinent positives per HPI. Patient denies any fever, chills, rash, headache, visual changes, dizziness,shortness of breath, chest pain, palpitations, nausea, vomiting, diarrhea, constipation, abdominal pain, or any urinary issues. [facility] Past Medical History Medical History Anxiety Dyslipidemia Essential (primary) hypertension (normal spontaneous vaginal delivery) x2 Obesity Surgical History Surgical History History of (~2006) x1 History of hysterectomy (~04/2021) S/P endometrial ablation (~2013) Family History Family History Mother Hypertension Depression Social History Social History Smoking status: Never smoker Alcohol intake: current Alcohol use details: socially Substance use: never Substance use type: does not use Lack of Transportation: No Lack of Food: Never True Current Housing: I Have Housing Concerned About Future Housing: No Difficulty Paying Gas/Electric Bills: No Difficulty Paying for Meds: No Currently Unemployed: No Education: Bachelor's Degree Difficulty w/ Childcare or Family Care: No Living arrangements: with family Occupation/Education: occupation Gender identity (if verbalized by the patient): Female Spiritual care concerns: No Agree to blood products: Yes Comments At the time of my signature, I reviewed and agree with the nursing past medical, surgical, social, and family history. There is no relevant family history pertinent to the patient complaint. Exam Narrative: General: Well-developed, well nourished, in no apparent distress Head: Normocephalic, atraumatic Eyes: Pupils equally round and reactive to light bilaterally, EOM intact, sclera and conjunctive clear, no discharge, lids normal Ears: TMs intact and clear, ear canals clear, no drainage, grossly hearing normal. Nose: Nares patent, no discharge, no inflammation, no sinus tenderness. Mouth: Oral pharynx without lesions or masses, good dentition, MMM. Neck: Supple, trachea midline, no enlargement of anterior or posterior cervical nodes, no thyroid masses or goiter palpable. Cardio: Regular rate and rhythm, s1 and s2 normal, no murmur appreciated. Resp: Clear to auscultation bilaterally, no rhonchi, rales, wheezing or rubs Course Course Emergency Course: Portions of this record may have been created with voice recognition software. Level of Care: Express Care Visit Vital Signs Vital signs: Vital Signs Temperature 36.7 C 10/16/24 18:11 Pulse Rate 92 10/16/24 18:11 Respiratory Rate 16 10/16/24 18:11 Blood Pressure 137/90 10/16/24 18:11 Pulse Oximetry 100 10/16/24 18:11 Temperature 36.7 C 10/16/24 18:11 Pulse Rate 92 10/16/24 18:11 Respiratory Rate 16 10/16/24 18:11 Blood Pressure 137/90 10/16/24 18:11 Pulse Oximetry 100 10/16/24 18:11 Vital signs reviewed MDM - URI/Sore Throat MDM Narrative Medical decision making narrative: At the time of visit patient is resting comfortably on the exam table. Patient appears to be nontoxic. Diagnostics: Chest x-ray was performed and shows no acute cardiopulmonary process. Plan: Will cover patient for a walking pneumonia as she has had exposure. Prescription for doxycycline, albuterol inhaler, and Tessalon Perles was sent to the pharmacy. Supportive measures were discussed with the patient and they voiced understanding discharge instructions and agrees to treatment plan. Return precautions reviewed Differential Diagnosis Differential diagnosis: Likely upper respiratory infection, otitis media, sinusitis, viral infection, bronchitis, influenza, pharyngitis and other (COVID) Imaging Data Radiologist's impression: ITS Impressions Chest X-Ray 10/16/24 18:48 IMPRESSION: No acute cardiopulmonary process. Discharge Plan Discharge Clinical Impression: Upper respiratory infection with cough and congestion Patient Disposition: Home, Self-Care Condition: Stable Instructions: Antibiotic Form, Upper Respiratory Infection (ED) Additional Instructions: Chest x-ray is negative for any acute cardiopulmonary process Take prescription medications only as prescribed-albuterol inhaler, doxycycline, and Tessalon Perles Increase fluids and stay well hydrated Tylenol/motrin for pain/fever Flonase and OTC antihistamines as directed Vicks vapor rub to open sinuses Sinus rinses for congestion Cepacol spray, cough drops, throat lozenges, warm tea with honey/lemon, gargle salt water to soothe throat BRAT diet for diarrhea Clear liquids x 24 hours then advance as tolerated for nausea/vomiting Go to the ED if you develop a worsening in your condition- high fever not controlled by Tylenol or Motrin, dehydration, weakness, lethargy, shortness of breath, or chest pain. Follow up with your PCP in 3-5 days if symptoms persist. Prescriptions: New doxycycline hyclate 100 mg capsule 100 mg PO BID 7 Days Qty: 14 0RF benzonatate 200 mg capsule 200 mg PO TID 7 Days Qty: 21 0RF albuterol sulfate 90 mcg/actuation HFA aerosol inhaler 2 puff inhalation Q4-6H PRN (Reason: shortness of breath or wheezing) 30 Days Qty: 8.5 0RF No Action buspirone 5 mg tablet 5 mg PO BID PRN (Reason: anxiety) Qty: 20 0RF escitalopram oxalate [Lexapro] 10 mg tablet 10 mg PO DAILY Qty: 90 3RF atenolol 25 mg tablet 25 mg PO DAILY Qty: 90 3RF cyanocobalamin (vitamin B-12) 1,000 mcg tablet, sublingual 1,000 mcg sublingual DAILY Qty: 90 1RF cholecalciferol (vitamin D3) 1,250 mcg (50,000 unit) tablet 1,250 mcg PO WEEKLY Qty: 12 1RF Follow-up/Referrals: Dave Mendoza MD [Primary Care Provider] - Time of Disposition: 19:18 Quality NIHSS Nursing Documentation ED NIHSS nursing documentation: reviewed/agree
[2024-10-16 18:11] VITALS: BP 137/90; PULSE 92; RESP 16; TEMP 36.7; O2SAT 100
== END 2024-10-16 19:24 | disposition home or self-care (01) ==
PROVIDERS: Emergency Provider Nurse Practitioner Family; PCP Family Medicine
DX: J06.9 Acute upper respiratory infection, unspecified (principal); R05.9 Cough, unspecified; I10 Essential (primary) hypertension; E78.5 Hyperlipidemia, unspecified; E66.9 Obesity, unspecified; Z68.35 Body mass index [BMI] 35.0-35.9, adult
CPT/HCPCS: 71046; 99213; G0463

== ENCOUNTER 2025-03-22 07:54 | Outpatient (CLI) | payer OTHER, SELFPAY ==
--- OUTSIDE RECORDS SUMMARY | 2025-03-22 08:00 | XMS_ITS | Clinical Summary ---
Author Organization [facility] Address [facility] [place] [address] Care Team Providers Care Senior Mobile Web Developer Name Role Phone Cory Barrios MD Primary Care Provider [phone] Allergies Active Allergy Reactions Criticality Noted Date Comments Cefaclor Hives 04/18/2015 Medications busPIRone 7.5 MG tabletIndication s:Anxiety Take 1 tablet (7.5 mg total) by mouth 3 (three) times daily as needed. 90 tablet 2 11/03/2020 Active sertraline 100 MG tabletIndication s:Anxiety and depression Take 1 tablet (100 mg total) by mouth daily. 90 tablet 1 11/27/2020 Active Active Problems Problem Noted Date Diagnosed Date Actinic skin damage 07/09/2016 Anxiety 04/18/2015 Resolved Problems Problem Noted Date Diagnosed Date Resolved Date Wears contact lenses 08/14/2018 020 Wears glasses 08/14/2018 07/28/2020 Encounter for preventive health examination 04/18/2015 07/28/2020 Hypertension 04/18/2015 07/30/2021 Immunizations Immunization Administration Dates Next Due Flucelvax 6 Months+ (Prefill ed Syringe) 08/27/2019 Fluzone Adult - >Age 3 (Pref illed Syringe) 12/26/2020(Deferred: Patient Refused) PFIZER COVID-19 (ORIGINAL FO RMULATION, PURPLE CAP) mRNA, LNP-S, PF, 30 MCG/0.3 ML DOSE 10/24/2021,12/22/2020 Tdap (Historical Only-select from magnify glass) 05/26/2019 Family History Medical History Relation Comments Cancer Father Dementia Mother Hypertension Mother Relation Status Comments Father Mother Social History Tobacco Use Types Packs/Day Years Used Date Smoking Tobacco: Never Smokeless Tobacco: Never Tobacco Cessation:Counseling Given: No Alcohol Use Standard Drinks/Week Comments No 0 (1 standard drink = 0.6 oz pur e alcohol) AUDIT-C Answer Date Recorded Frequency of Alcohol Consumption Never 05/26/2019 Average Number of Drinks Not on file 019 Frequency of Binge Drinking Not on file 05/17 PHQ-2 Answer Date Recorded PHQ-2 Score - If the patient scores above 3, please move on to questions 3-9 0 12/26/2020 Education Answer Date Recorded What is the highest level of school you have completed or the highest degree you have received? Bachelor's degree (e.g., BA, AB, BS) 05/26/2019 Comments No Sex and Gender Information Value Date Recorded Sex Assigned at Not on file Legal Sex Female 1:11 PM CDT Gender Identity Not on file Sexual Orientation Not on file Occupation Industry Job Start Date Job End Date Not on file Not on file Not on file Not on file Last Filed Vital Signs Vital Sign Reading Time Taken Comments Blood Pressure 116/70 07/30/2021 12:47 PM CDT Pulse 85 07/30/2021 12:47 PM CDT Temperature 35.8 C (96.5 F) 07/30/2021 12:47 PM CDT Respiratory Rate 16 07/30/2021 12:47 PM CDT Oxygen Saturation 98% 07/30/2021 12:47 PM CDT Inhaled Oxygen Concentration - - Weight 89.9 kg (198 lb 3.2 oz) 07/30/2021 12:47 PM CDT Height 157.5 cm (5' 2 ) 07/30/2021 12:47 PM CDT Body Mass Index 36.25 07/30/2021 12:47 PM CDT Plan of Treatment Health Maintenance Due Date Last Done Comments Hepatitis C 1998 Hepatitis B Vaccines (1 of - 19+ 3-dose series) 1999 Annual Physical 07/30/2022 07/30/2021 COVID-19 Vaccine ( - 2023-2 5 season) 2024 10/24/2021, 12/22/2020 Mammogram Screening 12/11/2024 12/11/2022 DTaP, Tdap and Td Vaccines ( 2 - Td or Tdap) 05/26/2029 05/26/2019 HPV Vaccines Aged Out No longer eligi ble based on patient's age to complete this topic Meningococcal B Vaccine Aged Out No l onger eligible based on patient's age to complete this topic Meningococcal Vaccine Aged Out No lenny jose eligible based on patient's age to complete this topic Pneumococcal Vaccine: Pediatrics (0 to 5 Years) and At-Risk Patients (6 to 49 Years) Aged Out No longer eligible b ased on patient's age to complete this topic RSV Immunizations Under 20 Months Aged Out No longer eligible b ased on patient's age to complete this topic Procedures Procedure Name Priority Date/Time Associated Diagnosis Comments MAMMOGRAM GENERIC (SCAN ORDER) 12/11/2022 from Last 3 Months or Most Recently Relevant to Health Maintenance Results * MAMMOGRAM GENERIC (12/11/2022) Anatomical Region Laterality Modality Other 12/11/2022 [facility] Scanned SCANNING Final Resu lt from Last 3 Months or Most Recently Relevant to Health Maintenance Insurance [place] [address] Care Teams Senior Mobile Web Developer Relationship Specialty [place] [id number] [place] [address] PCP - General FAMILY PRACTICE 09/28/19
[2025-03-22 12:46] LABS: Alanine Aminotransferase 20 U/L (6-35); Albumin Level 4.1 g/dL (3.5-5.1); Alkaline Phosphatase 78 U/L (38-126); Anion Gap 9 mmol/L (4-12); Aspartate Amino Transferase 34 U/L (14-36); Bilirubin,Total 0.7 mg/dL (0.2-1.3); Blood Urea Nitrogen 11 mg/dL (7-17); Calcium 9.1 mg/dL (8.4-10.2); Carbon Dioxide 26 mmol/L (22-30); Chloride 104 mmol/L (98-107); Cholesterol 223 mg/dL (0-200); Estimated Glomerular Filt Rate > 60; Glucose 96 mg/dL (65-110); HDL Direct 41 mg/dL; Sodium 139 mmol/L (137-145); Triglycerides 166 mg/dL (<150)
[2025-03-22 12:58] LABS: LDL Cholesterol Direct 138 mg/dL
== END 2025-03-22 07:55 | disposition home or self-care (01) ==
LOC: ANHGOSHLAB 07:56
PROVIDERS: PCP Family Medicine; Visit Provider Family Medicine
DX: E78.5 Hyperlipidemia, unspecified (principal); I10 Essential (primary) hypertension
CPT/HCPCS: 36415; 80053; 80061

== ENCOUNTER 2025-09-18 08:58 | Emergency (ER) | payer OTHER, SELFPAY ==
[2025-09-18 09:07] VITALS: BP 131/84; PULSE 79; RESP 16; TEMP 36.1; O2SAT 100
--- NOTE | 2025-09-18 09:13 | ED_ITS ---
HPI - Female Genitourinary General Chief complaint: Urogenital-Female Stated complaint: UTI SYMPTOMS Time Seen by Provider: 09/18/25 08:58 Source: patient Mode of arrival: ambulatory Limitations: no limitations History of Present Illness HPI Narrative: Serenity is a 45-year-old female patient presenting to the clinic today with complaints of possible UTI x1 day. She reports her symptoms started just this morning when she woke up. She is having burning with urination, burning over her bladder, and decrease urine output. States that when she is wiping it the tissue paper is pink. No fevers, chills, body aches. Denies any back pain nausea or vomiting. Related Data Home Medications ?Medication ?Instructions ?Recorded ?Confirmed ?Last Taken ?Type cholecalciferol (vitamin D3) 1,250 09/18/25 Unknown History mcg (50,000 unit) capsule Allergies Allergy/AdvReac Type Severity Reaction Status Date / Time cefaclor Allergy Mild Hives Verified 09/18/25 09:13 vancomycin AdvReac Intermediate Other Verified 09/18/25 09:13 Review of Systems Review of Systems: Pertinent positives per HPI. Patient denies any fever, chills, rash, headache, visual changes, dizziness, cough, runny nose, sore throat, shortness of breath, chest pain, palpitations, nausea, vomiting, diarrhea, constipation. PENDING SALE TO [facility] Past Medical History Medical History Dyslipidemia Essential (primary) hypertension (normal spontaneous vaginal delivery) x2 Obesity Anxiety Surgical History Surgical History History of hysterectomy (~04/2021) S/P endometrial ablation (~2013) History of (~2006) x1 Family History Family History Mother Hypertension Depression Social History Social History Smoking status: Never smoker Alcohol intake: current Alcohol use details: socially Substance use: never Substance use type: does not use Lack of Transportation: No Lack of Food: Never True Current Housing: I Have Housing Concerned About Future Housing: No Difficulty Paying Gas/Electric Bills: No Difficulty Paying for Meds: No Currently Unemployed: No Education: Bachelor's Degree Difficulty w/ Childcare or Family Care: No Living arrangements: with family Occupation/Education: occupation Gender identity (if verbalized by the patient): Female Spiritual care concerns: No Agree to blood products: Yes Comments At the time of my signature, I reviewed and agree with the nursing past medical, surgical, social, and family history. There is no relevant family history pertinent to the patient complaint. Exam Narrative: General: Well-developed, obese, in no apparent distress. Head: Normocephalic, atraumatic. Cardio: Regular rate and rhythm, s1 and s2 normal, no murmur appreciated. Resp: Clear to auscultation bilaterally, no rhonchi, rales, wheezing or rubs. Abdomen: Soft, pliable, bowel sounds present in all quadrants, suprapubic tender to palpation, no organomegly, no CVAT tenderness. Course Course Emergency Course: Portions of this record may have been created with voice recognition software. Level of Care: Express Care Visit Vital Signs Vital signs: Vital Signs Temperature 36.1 C L 09/18/25 09:07 Pulse Rate 79 09/18/25 09:07 Respiratory Rate 16 09/18/25 09:07 Blood Pressure 131/84 09/18/25 09:07 Pulse Oximetry 100 09/18/25 09:07 Temperature 36.1 C L 09/18/25 09:07 Pulse Rate 79 09/18/25 09:07 Respiratory Rate 16 09/18/25 09:07 Blood Pressure 131/84 09/18/25 09:07 Pulse Oximetry 100 09/18/25 09:07 Vital signs reviewed MDM - Female Genitourinary MDM Narrative Medical decision making narrative: At the time of visit patient is resting comfortably on the exam table. Patient appears to be nontoxic. complaints of possible UTI x1 day. She reports her symptoms started just this morning when she woke up. She is having burning with urination, burning over her bladder, and decrease urine output. States that when she is wiping it the tissue paper is pink. No fevers, chills, body aches. Denies any back pain nausea or vomiting. On exam patient has soft pliable abdomen, nondistended, bowel sounds present all 4 quadrants, mild tenderness over the suprapubic area, no CVAT tenderness. Urine dip ordered. Labs: Urine dip positive blood, protein, leukocytes, nitrates, ketones, and bili. We will send urine for culture. Plan: I suspect patient has urinary tract infection. Prescription for Bactrim DS was sent to the pharmacy. Supportive measures were discussed with the patient and they voiced understanding discharge instructions and agrees to treatment plan. Return precautions reviewed Differential Diagnosis Differential diagnosis: Likely urinary tract infection, cystitis and other ( Pyelonephritis) Discharge Plan Discharge Clinical Impression: Urinary tract infection Qualifiers: Urinary tract infection type: acute cystitis Hematuria presence: with hematuria Qualified Code(s): N30.01 - Acute cystitis with hematuria Patient Disposition: Home Condition: Stable Instructions: Antibiotic Form, Urinary Tract Infection in Women (ED) Additional Instructions: Urinalysis shows 1+ leukocytes, nitrate positive, protein 3, blood 3, trace of ketone, and 1+ bili. We will send urine for culture Take Bactrim as prescribed Increase fluids and stay well hydrated Wipe front to back. May use wet wipes. Avoid tub baths If sexually active- pee before and after intercourse. Wear cotton panties Avoid tight clothing up against the genitals Follow up with your PCP in 1 week if symptoms persist. Patient Language: Swedish Prescriptions: New sulfamethoxazole-trimethoprim [Bactrim DS] 800-160 mg tablet 1 tablet PO Q12H 7 Days Qty: 14 0RF No Action cholecalciferol (vitamin D3) 1,250 mcg (50,000 unit) capsule buspirone 5 mg tablet 5 mg PO BID PRN (Reason: anxiety) Qty: 20 0RF escitalopram oxalate [Lexapro] 10 mg tablet 10 mg PO DAILY Qty: 90 3RF atenolol 25 mg tablet 25 mg PO DAILY Qty: 90 3RF cyanocobalamin (vitamin B-12) 1,000 mcg tablet, sublingual 1,000 mcg sublingual DAILY Qty: 90 1RF Follow-up/Referrals: Dave Mendoza MD [Primary Care Provider, Family Practice] Time of Disposition: 09:31 Quality NIHSS Nursing Documentation ED NIHSS nursing documentation: reviewed/agree
[2025-09-18 09:25] LABS: EDUAAPPEAR Clots; EDUABILI 1+ (Negative); EDUABLOOD 3+ (Negative); EDUACOLOR1 Light/Pale; EDUAGLUCOSE Negative (Negative); EDUAKETONE Trace (Negative); EDUALEUKO 1+ (Negative); EDUANITRATE Positive (Negative); EDUAPH 6.0; EDUAPROTEIN 3+ (Negative); EDUASPGRAVITY 1.030; EDUAUROBILI 1.0
== END 2025-09-18 09:35 | disposition home or self-care (01) ==
PROVIDERS: Emergency Provider Nurse Practitioner Family; PCP Family Medicine
DX: N30.01 Acute cystitis with hematuria (principal); I10 Essential (primary) hypertension; E78.5 Hyperlipidemia, unspecified; F41.9 Anxiety disorder, unspecified; E66.9 Obesity, unspecified; Z68.35 Body mass index [BMI] 35.0-35.9, adult
CPT/HCPCS: 81003; 87086; 87186; 99213; G0463

== ENCOUNTER 2025-09-26 10:54 | Outpatient (CLI) | payer OTHER, SELFPAY ==
[2025-09-26 12:53] LABS: Hematocrit 39.3 % (37.0-47.0); Hemoglobin 13.6 g/dL (12.0-15.0); Immature Granulocyte Percent A 0.4 % (0-0.5); Lymphocytes Absolute Auto 2.69 K/mm3 (0.9-3.2); Mean Corpuscular HGB Conc 34.6 g/dl (32-36); Mean Corpuscular Hemoglobin 32.2 pg (26-34); Mean Corpuscular Volume 92.9 fl (80-100); Nucleated Red Blood Cells Absolute Auto 0.000 K/mm3 (0.0-0.012); Nucleated Red Blood Cells Perc 0.0 % (0.0-0.2); Platelet Count Result 373 k/mm3 (150-375); Red Blood Count 4.23 M/mm3 (4.2-5.4); White Blood Count 9.0 K/mm3 (4.5-10.0)
[2025-09-26 13:13] LABS: Alanine Aminotransferase 18 U/L (6-35); Albumin Level 4.2 g/dL (3.5-5.1); Alkaline Phosphatase 88 U/L (38-126); Anion Gap 7 mmol/L (4-12); Aspartate Amino Transferase 41 U/L (14-36); Bilirubin,Total 0.5 mg/dL (0.2-1.3); Blood Urea Nitrogen 8 mg/dL (7-17); Calcium 9.0 mg/dL (8.4-10.2); Carbon Dioxide 26 mmol/L (22-30); Chloride 103 mmol/L (98-107); Cholesterol 231 mg/dL (0-200); Estimated Glomerular Filt Rate > 60; Glucose 95 mg/dL (65-110); HDL Direct 37 mg/dL; Potassium 4.3 mmol/L (3.4-5.0); Sodium 136 mmol/L (137-145); Total Protein 7.5 g/dL (6.3-8.2); Triglycerides 191 mg/dL (<150)
[2025-09-26 13:34] LABS: Hemoglobin A1C 5.1 % (<5.7); Thyroid Stimulating Hormone Reflex 2.540 uIU/mL (0.465-4.68)
[2025-09-26 14:08] LABS: Vitamin B12 715.0 pg/mL (239-931)
== END 2025-09-26 10:55 | disposition home or self-care (01) ==
LOC: ANHGOSHLAB 10:55
PROVIDERS: PCP Family Medicine; Visit Provider Family Medicine
DX: E55.9 Vitamin D deficiency, unspecified (principal); Z00.00 Encounter for general adult medical examination without abnormal findings; I10 Essential (primary) hypertension; R73.9 Hyperglycemia, unspecified; E78.5 Hyperlipidemia, unspecified
CPT/HCPCS: 36415; 80053; 80061; 82306; 82607; 83036; 84443; 85025

== ENCOUNTER 2025-10-29 09:02 | Day surgery (SDC) | payer OTHER, SELFPAY ==
[2025-10-20 09:44] VITALS: BMI 36.6
[2025-10-29 09:15] VITALS: BP 132/87; PULSE 96; RESP 16; TEMP 36.4; O2SAT 99
[2025-10-29] MEDS: LACTATED RINGERS 1,000 ML 150 ML IV CONT (09:18)
--- NOTE | 2025-10-29 10:47 | WPDANESEPPF ---
Anes - Initial Pre Proc Eval Procedure: Operation Date: 10/29/25 10:30 Proposed Procedures p Screening Colonoscopy - Cecilio Cardoso MD Date/Time: 10/29/25 10:47 Surgeon: Cecilio Cardoso MD Pre Op Diagnosis: Screening Patient Data Age: 45 Gender: F Height: 1.57 m Weight: 89.7 kg Last Vital Signs Temp 36.4 C 10/29/25 09:15 Pulse 96 10/29/25 09:15 Resp 16 10/29/25 09:15 BP 132/87 10/29/25 09:15 Pulse Ox 99 10/29/25 09:15 O2 Del Method Room Air 10/29/25 09:15 Allergies Allergy/AdvReac Type Severity Reaction Status Date / Time cefaclor Allergy Mild Hives Verified 10/29/25 09:14 vancomycin AdvReac Intermediate Other Verified 10/29/25 09:14 Home Medications ?Medication ?Instructions ?Recorded ?Confirmed ?Type atenolol 25 mg tablet 25 mg PO DAILY #90 tabs 09/15/24 10/29/25 Rx escitalopram oxalate 10 mg tablet 10 mg PO DAILY #90 tabs 09/15/24 10/29/25 Rx (Lexapro) cyanocobalamin (vitamin B-12) 1,000 mcg sublingual DAILY #90 tabs 09/20/24 10/29/25 Rx 1,000 mcg sublingual tablet ammonium lactate 12 % lotion 1 applic topical DAILY #225 grams 09/27/25 10/29/25 Rx buspirone 5 mg tablet 5 mg PO BID PRN anxiety #30 tabs 09/27/25 10/29/25 Rx cholecalciferol (vitamin D3) 50 50 mcg PO DAILY 09/27/25 10/29/25 History mcg (2,000 unit) tablet Patient hx anesthesia problems: none Family hx anesthesia problems: none Results Review: All pre-operative results and documents have been reviewed as part of the pre-operative evaluation. [facility] Past Medical History Medical History (Updated 09/27/25 @ 17:09 by Dave Mendoza MD) Vitamin B12 deficiency Maternal family history of dementia Mother Vitamin D deficiency Dyslipidemia Essential (primary) hypertension (normal spontaneous vaginal delivery) x2 Obesity Anxiety Surgical History Surgical History History of hysterectomy (~04/2021) S/P endometrial ablation (~2013) History of (~2006) x1 Family History Family History Mother Hypertension Depression Social History Social History Smoking status: Never smoker Alcohol intake: current Alcohol use details: socially Substance use: never Substance use type: does not use Lack of Transportation: No Lack of Food: Never True Current Housing: I Have Housing Concerned About Future Housing: No Difficulty Paying Gas/Electric Bills: No Difficulty Paying for Meds: No Currently Unemployed: No Education: Bachelor's Degree Difficulty w/ Childcare or Family Care: No Living arrangements: with family Occupation/Education: occupation Gender identity (if verbalized by the patient): Female Spiritual care concerns: No Agree to blood products: Yes Anes - Eval Final PreProcedure Day of Procedure 10/29/25 10:47 Heart: regular rate and rhythm Lungs: clear to auscultation Airway: Mallampati scale class II Neurological: alert and oriented Last oral intake: >/= 8 hours ASA classification: II Emergent: no Anesthetic plan: proceed Anesthesia type and monitoring: monitored anesthesia care Results Review: All pre-operative results and documents have been reviewed as part of the pre-operative evaluation. Informed Consent: The patient's anesthetic plan and its attendant risks and benefits were discussed with the patient/family/POA. Questions were solicited and answers provided to the satisfaction of the patient/family/POA.
--- NOTE | 2025-10-29 10:48 | PM.IMHP2 ---
H&P: HPI History of Present Illness Date/Time: 10/29/25 10:48 Chief Complaint: Screening colonoscopy Narrative: This is the patient's first colonoscopy. There are no GI symptoms and there is no family history of colorectal cancer. Review of Systems Review of Systems: All systems reviewed & are unremarkable except as noted in HPI and below PMFSH Past Medical History Medical History (Updated 10/29/25 @ 10:49 by Cecilio Cardoso MD) Vitamin B12 deficiency Maternal family history of dementia Mother Vitamin D deficiency Dyslipidemia Essential (primary) hypertension (normal spontaneous vaginal delivery) x2 Obesity Anxiety Surgical History Surgical History History of hysterectomy (~04/2021) S/P endometrial ablation (~2013) History of (~2006) x1 Family History Family History Mother Hypertension Depression Social History Social History Smoking status: Never smoker Alcohol intake: current Alcohol use details: socially Substance use: never Substance use type: does not use Lack of Transportation: No Lack of Food: Never True Current Housing: I Have Housing Concerned About Future Housing: No Difficulty Paying Gas/Electric Bills: No Difficulty Paying for Meds: No Currently Unemployed: No Education: Bachelor's Degree Difficulty w/ Childcare or Family Care: No Living arrangements: with family Occupation/Education: occupation Gender identity (if verbalized by the patient): Female Spiritual care concerns: No Agree to blood products: Yes Meds Home Medications and Allergies Home Medications ?Medication ?Instructions ?Recorded ?Confirmed ?Type atenolol 25 mg tablet 25 mg PO DAILY #90 tabs 09/15/24 10/29/25 Rx escitalopram oxalate 10 mg tablet 10 mg PO DAILY #90 tabs 09/15/24 10/29/25 Rx (Lexapro) cyanocobalamin (vitamin B-12) 1,000 mcg sublingual DAILY #90 tabs 09/20/24 10/29/25 Rx 1,000 mcg sublingual tablet ammonium lactate 12 % lotion 1 applic topical DAILY #225 grams 09/27/25 10/29/25 Rx buspirone 5 mg tablet 5 mg PO BID PRN anxiety #30 tabs 09/27/25 10/29/25 Rx cholecalciferol (vitamin D3) 50 50 mcg PO DAILY 09/27/25 10/29/25 History mcg (2,000 unit) tablet Allergies Allergy/AdvReac Type Severity Reaction Status Date / Time cefaclor Allergy Mild Hives Verified 10/29/25 09:14 vancomycin AdvReac Intermediate Other Verified 10/29/25 09:14 Vital Signs Vital Signs - 24 hr 10/29/25 09:15 Temperature 97.6 F Pulse Rate 96 Respiratory Rate 16 Blood Pressure 132/87 Pulse Oximetry 99 Oxygen Delivery Room Air Exam Const: General: cooperative and healthy appearing Resp: Effort & Inspection: normal respiratory effort and able to speak in complete sentences Auscultation: clear to auscultation bilaterally Cardio: Rate: regular rate Rhythm: regular rhythm GI: Inspection: normal to inspection GI Palp: No No hepatosplenomegaly present Auscultation: normal bowel sounds Rectal Exam: deferred Skin: General skin exam: normal color Psych: Appearance: grossly normal Mental Status: mental status grossly normal Assessment and Plan Assessment and plan (1) Encounter for screening colonoscopy: Code(s): Z12.11 - Encounter for screening for malignant neoplasm of colon Status: Acute Assessment and Plan: The patient is deemed a good candidate for the procedure. Consent signed. Will proceed. Prior Studies I have reviewed the following patient records and this information was taken into consideration when formulating the assessment and plan.: previous labs, previous ER visits, previous hospitalizations and previous clinic visits
[2025-10-29 11:10] VITALS: BP 110/78; PULSE 86; RESP 18; O2SAT 97
--- NOTE | 2025-10-29 11:13 | WPDANESPN ---
Anes - Prog Note Post-Op Date/Time: 10/29/25 11:13 Cardiovascular status: normal Respiratory status: normal Airway patency: baseline Mental status: baseline Post-Op hydration status: normal Vital Signs: Last Vital Signs Temp 36.4 C 10/29/25 09:15 Pulse 96 10/29/25 09:15 Resp 16 10/29/25 09:15 BP 132/87 10/29/25 09:15 Pulse Ox 99 10/29/25 09:15 O2 Del Method Room Air 10/29/25 09:15 Pain Score (VAS): 0 Patient Feedback: Patient satisfied with anesthetic care.
[2025-10-29 11:20] VITALS: BP 118/75; PULSE 88; RESP 16; O2SAT 97
[2025-10-29 11:30] VITALS: BP 126/79; PULSE 70; RESP 16; O2SAT 100
== END 2025-10-29 11:40 | disposition home or self-care (01) ==
PROVIDERS: PCP Family Medicine; Referring Provider Family Medicine; Visit Provider Internal Medicine Gastroenterology
PROC: 0DJD8ZZ Inspection of Lower Intestinal Tract, Via Natural or Artificial Opening Endoscopic (ICD-10-PCS; CPT 45378; principal; 2025-10-29 10:30)
DX: Z12.11 Encounter for screening for malignant neoplasm of colon (principal)
CPT/HCPCS: 45378